=== PATIENT | female | born 1945 | race Caucasian/White ===

== ENCOUNTER 2017-07-22 15:01 | Outpatient (CLI) ==
[2014-12-02 14:32] VITALS: BMI 24.0
--- NOTE | 2017-07-22 16:46 | DI ---
EXAM: Frontal chest, right ribs four views HISTORY: Fall, pain. FINDINGS: No displaced rib fracture is identified. Bones are intact. Heart size is within normal li mits. No acute infiltrates are seen. No vascular congestion. There is no consolidation, visible ple ural fluid or pneumothorax. IMPRESSION: No fracture identified. Lungs are clear.
== END 2017-07-22 15:02 | disposition home or self-care (01) ==
LOC: RAD 15:01
PROVIDERS: ATTEND Family Medicine
DX: S29.9XXA Unspecified injury of thorax, initial encounter (principal); W19.XXXA Unspecified fall, initial encounter

== ENCOUNTER 2017-10-14 10:37 | Outpatient (CLI) ==
[2014-12-02 14:32] VITALS: BMI 24.0
--- NOTE | 2017-10-14 11:05 | DI ---
EXAM: Four views of the thoracic spine. History: Left-sided thoracic back pain. Findings: Cholecystectomy clips. Postsurgical changes of the cervical spine. No acute fracture or subluxation of the thoracic spine. Mild to moderate multilevel degenerative disc space narrowing wit h endplate sclerosis and a few small osteophytes. Impression: 1. No acute osseous abnormality of the thoracic spine. 2. Mild to moderate degenerative disc disease.
== END 2017-10-14 10:38 | disposition home or self-care (01) ==
LOC: RAD 10:37
PROVIDERS: ATTEND Family Medicine
DX: M54.6 Pain in thoracic spine (principal)

== ENCOUNTER 2024-04-05 02:05 | Inpatient (IN) ==
--- NOTE | 2024-04-05 02:28 | ED.PDOC ---
General ED Provider: Dr. MICHI HERNANDEZ MD Chief Complaint: Fall Stated Complaint: History obtained from the patient and her family member, patient with a history of hypertension, coronary disease, myocardial infarction, lymphoma states while ambulating using walker assistance she apparently slipped and fell injuring her right hip, at 4 PM yesterday. Patient also complains of hitting her head denies loss of conscious, dizziness, headache. Patient also complains having abrasion over her right elbow. Patient states she fell a week ago sustaining patient to her wrist which remains swollen. Time Seen by Provider: 04/05/24 02:27 Mode of Arrival: Wheelchair Information Source: Patient and Family Exam Limitations: Clinical condition Primary Care Provider: ROSA SANTIAGO Nursing and Triage Documentation Reviewed and Agree: Yes What is Opioid Naive?: *Opioid Naive implies the patient is not already taking opioids or not chronically receiving opioids on a daily basis. *PRN dosing is not "usually" associated with tolerance. *Patients are at higher risk of over-sedation and aspiration. What is Opioid Tolerant?: *Opioid Tolerance implies less than the expected response to an opioid. *Acquired tolerance is defined by the patient taking 60mg of oral morphine daily (or equianalgesic dose of another opioid) for 1 week or more. *Often associated with chronic pain. *May take more than usual dose to achieve desired pain control. Review of Systems Review Of Systems Constitutional: Reports No symptoms Eyes: Reports No symptoms Ears, Nose, Mouth, Throat: Reports No symptoms Respiratory: Reports No symptoms GI: Reports No symptoms : Reports No symptoms Musculoskeletal: Reports Joint pain and Other (Right wrist pain and swelling,) Skin: Reports Bruising (Abrasions over the right elbow, right wrist, bruising and swelling over the right hip) Neurological: Reports No symptoms Endocrine: Reports No symptoms Hematologic/Lymphatic: Reports No symptoms All Other Systems: Reviewed and Negative PFSH Female Reproductive History Menstrual Hx Hysterectomy: Yes Hx Tubal Ligation: No Physical Exam Physical Exam Appearance: Reports Well-appearing and Other (Scalp examination there is no swelling, ecchymosis or crepitus noted.) Ill-appearing: None Pain Distress: None Eyes: Reports ALEXANDRO and EOMI ENT: Reports Ears normal, Nose normal and Oropharynx normal Neck: Supple (There is no posterior cervical vertebral or paraspinal tenderness.) Respiratory: Reports Airway patent, Breath sounds clear and Breath sounds equal Cardiovascular: Reports RRR, Pulses normal and No rub GI/: Reports Soft, Nontender, No masses and Bowel sounds normal Musculoskeletal: Reports Normal strength, ROM intact and Other (There is a 1.5 cm cyst skin tear over the right elbow without swelling crepitus there is full range of motion the elbow. The right wrist swelling dorsally and tenderness with slight erythema. Right radial pulse 2+. The right hip with swelling tenderness ecchymosis over the greater trochanter. Fu) Skin: Reports Warm and Dry Neurological: Reports Sensation intact, Motor intact, Reflexes intact, Cranial nerves intact, Alert and Oriented (GCS-15) Psychiatric: Reports Affect appropriate and Mood appropriate Critical Care Note Critical Care Note Total Critical Care Time (mins): 0 Course Course 04/05/24 02:50 04/05/24 02:50 Orders, Labs, Meds: Lab Review 04/05/24 02:50 WBC 48.98 H RBC 3.75 L Hgb 12.4 Hct 38.9 MCV 103.7 H MCH 33.1 H MCHC 31.9 RDW Coeff of Monty 14.1 Plt Count 248 Neutrophils % (Manual) 26.0 L Lymphocytes % (Manual) 66.0 H Monocytes % (Manual) 2.0 Reactive Lymphocytes 6.0 H Anisocytosis Occasional PT 10.7 INR 1.03 Sodium 137.4 Potassium 4.04 Chloride 102.8 Carbon Dioxide 25.0 Anion Gap 13.64 BUN 24.0 H Creatinine 0.87 Estimated GFR (MDRD) 63.00 BUN/Creatinine Ratio 27.58 Glucose 337.6 H Calcium 8.48 Total Bilirubin 0.31 AST 54.7 H ALT 24.1 Alkaline Phosphatase 58.2 Total Protein 6.46 Albumin 3.87 Globulin 2.59 Albumin/Globulin Ratio 1.49 Orders Category Date Time Status EKG-(ED ONLY) Stat CARDIO 04/05/24 02:56 Completed CBC W/ AUTO DIFF Stat LAB 04/05/24 02:50 Completed CMP [COMPREHENSIVE METABOLIC PANEL] Stat LAB 04/05/24 02:50 Completed MANUAL DIFFERENTIAL Stat LAB 04/05/24 02:50 Completed PT WITH INR Stat LAB 04/05/24 02:50 Completed Diphth,Pertuss(Acell),Tet Vac [Boostrix] Meds 04/05/24 02:40 Discontinued 0.5 ml IM .ONCE ONE CT CERVICAL SPINE W/O CONTRAST Stat RADS 04/05/24 02:[address] HEAD W/O CONTRAST Stat RADS 04/05/24 02:[address] PELVIS W/O CONTRAST Stat RADS 04/05/24 02:40 Completed WRIST, RIGHT 3 VIEWS Stat RADS 04/05/24 02:42 Completed Medications Discontinued Medications Generic Name Dose Route Start Last Admin Trade Name Radha PRN Reason Stop Dose Admin Diphtheria/Pertussis/Tetanus Vacc 0.5 ml 04/05/24 02:40 04/05/24 04:00 Diphth,Pertuss(Acell),Tet Vac 0.5 Ml Disp.Syrin IM 04/05/24 02:41 0.5 ml .ONCE ONE Administration Vital Signs: Temp Pulse Resp BP Pulse Ox 04/05/24 02:08 98.2 F 94 20 126/69 96 Discharge Plan Discharge Patient Disposition: PLACED OBSERVATION Discharge Problem: Frequent falls Closed fracture of right inferior pubic ramus Qualifiers: Encounter type: initial encounter Qualified Code(s): S32.591A - Other specified fracture of right pubis, initial encounter for closed fracture Prescriptions: No Action potassium chloride [Klor-Con 10] 10 mEq tablet extended release 10 meq PO DAILY montelukast [Singulair] 10 mg tablet 10 mg PO DAILY fluticasone propionate [Flonase Allergy Relief] 50 mcg/actuation spray,suspension 2 spray intranasal BID Rx Instructions: administer into each nostril levothyroxine [Synthroid] 100 mcg tablet 100 mcg PO DAILY losartan [Cozaar] 25 mg tablet 25 mg PO DAILY Prempro 0.3-1.5 mg tablet 1 tab PO DAILY Trulicity 1.5 mg/0.5 mL pen injector 1.5 mg subcut WEEKLY omeprazole magnesium [Prilosec OTC] 20 mg tablet,delayed release (DR/EC) 20 mg PO BID spironolactone [Aldactone] 25 mg tablet 25 mg PO DAILY Serevent Diskus 50 mcg/dose blister with device 1 inh inhalation BID clopidogrel [Plavix] 75 mg tablet 75 mg PO DAILY fluticasone propionate [Flovent Diskus] 50 mcg/actuation blister with device 2 inh inhalation BID Jardiance 10 mg tablet 10 mg PO DAILY lovastatin 40 mg tablet 40 mg PO DAILY aspirin [Aspirin Childrens] 81 mg tablet,chewable 81 mg PO DAILY insulin glargine [Basaglar KwikPen U-100 Insulin] 100 unit/mL (3 mL) insulin pen 20 unit subcut DAILY furosemide [Lasix] 40 mg tablet 40 mg PO DAILY gabapentin 400 mg capsule 400 mg PO TID Entresto 24-26 mg tablet 1 tab PO BID insulin lispro [Humalog KwikPen Insulin] 100 unit/mL insulin pen 1 sliding scale dose subcut DIRECTED carvedilol [Coreg] 25 mg tablet 25 mg PO BID Rx Instructions: must administer with a meal/food metformin 500 mg tablet 500 mg PO DAILY ferrous sulfate [Feosol] 325 mg (65 mg iron) tablet 325 mg PO BID docusate sodium [Col-Rite] 100 mg capsule 100 mg PO BID oxycodone-acetaminophen [Endocet] 5-325 mg tablet 1 tab PO Q8H cetirizine [24Hour Allergy] 10 mg tablet 10 mg PO DAILY terazosin 5 mg tablet 5 mg PO BEDTIME calcium carbonate-vitamin D3 [Calcium 600 + D(3)] 600 mg-5 mcg (200 unit) tablet 1 tab PO BID Did you review [place] [employer] for ALL controlled substances?: Not Applicable ED Provider: MICHI HERNANDEZ Physician Progress Note: History obtained from the patient as well as the patient's family who states at 4 PM yesterday while ambulating with walker assistance she slipped and fell injuring her right elbow right hip and struck her head. Patient denies loss of conscious, headache, neck pain back pain. But complains of left hip pain. Patient with history of coronary disease, lymphoma, hypertension, type 2 diabetes. Patient received a Boostrix 0.5 mL IM 0306-EKG interpretation by myself consistent with normal sinus rhythm with first-degree block rate of [address] segment changes noted. There is no ectopy noted. Laboratory data reviewed CBC and CMP are of normal limit except for a white blood cell count of 48,000 previous white blood cell count August 2023 with a WBC of 50,000. Glucose of 337 X-ray of the right wrist interpretation radiologist shows no evidence of fracture dislocation The head CT scan without IV contrast interpretation by the radiologist shows no acute intracranial abnormality The cervical spine CT without IV contrast interpretation by radiologist shows stability of fracture. The pelvic CT without evidence of IV contrast interpretation radiologist is consistent with grossly intact hardware within the proximal left femur there is a mildly displaced fracture of the right inferior pubic ramus, no other fractures are seen, no dislocation. Differential diagnosis: 1)right inferior pubic ramus fracture 2) frequent falls Discussed with hospitalist Tacos Garcia at 0425 for observation
[2024-04-05 02:57] LABS: HEMATOCRIT 38.9 % (37.0-47.0); HEMOGLOBIN 12.4 g/dl (12.0-16.0); MEAN CORPUSCULAR HEMOGLOBIN 33.1 pg (27.0-31.0); MEAN CORPUSCULAR HGB CONC 31.9 (31.8-35.4); MEAN CORPUSCULAR VOLUME 103.7 fl (81.0-99.0); PLATELET COUNT 248 10^3/uL (140-440); RDW COEFFICIENT OF VARIATION 14.1 % (11.6-14.8); RED BLOOD COUNT 3.75 10^6/ul (4.20-5.40)
[2024-04-05 03:02] LABS: WHITE BLOOD COUNT 48.98 K/ul (4.6-10.2)
[2024-04-05 03:07] LABS: PROTHROMBIN TIME 10.7 SEC (9.3-11.0)
[2024-04-05 03:12] LABS: ALANINE AMINOTRANSFERASE 24.1 U/L (0-35); ALBUMIN 3.87 g/dL (3.5-5.0); ALKALINE PHOSPHATASE 58.2 U/L (53-141); ASPARTATE AMINO TRANSFERASE 54.7 U/L (14-36); BILIRUBIN,TOTAL 0.31 mg/dL (0.2-1.3); CALCIUM 8.48 mg/dL (8.4-10.2); CHLORIDE 102.8 mmol/L (98-107); CREATININE 0.87 mg/dL (0.60-1.30); GLUCOSE 337.6 mg/dL (74-106); POTASSIUM 4.04 mmol/L (3.5-5.1); SODIUM 137.4 mmol/L (134.5-145); TOTAL PROTEIN 6.46 g/dL (6.3-8.2)
[2024-04-05 03:24] LABS: ANISOCYTOSIS OCCASIONAL (NOT PRESENT)
--- NOTE | 2024-04-05 03:37 | CT ---
EXAM: CT HEAD WITHOUT CONTRAST. HISTORY: Fall. PROCEDURE: Contiguous axial CT images of the head without contrast with coronal and sagittal reforma ts. COMPARISON: CT head of 08/16/2023. FINDINGS: There is diffuse cerebral atrophy. The ventricles are stable in size. The basal cisterns are normal in appearance. No evidence of mass or midline shift. No intracranial hemorrhage or evid ence of large vessel infarct. No extra-axial fluid collection. There are chronic small vessel ische corinne changes in the white matter. The paranasal sinuses and mastoid air cells are normal in appearanc e. No skull fracture. Impression: No intracranial hemorrhage or skull fracture. Chronic small vessel ischemic changes. Diffuse cerebral atrophy. All CT scans are performed using dose optimization techniques as appropriate to the performed exam an d include at least one of the following: Automated exposure control, adjustment of the mA and/or kV according t o size, and the use of iterative reconstruction technique.
--- NOTE | 2024-04-05 03:41 | CT ---
EXAM: CT OF THE PELVIS WITHOUT CONTRAST History: Pelvic trauma and right hip pain. Technique: Multiplanar CT images through the pelvis were obtained without the administration of IV c ontrast FINDINGS: Atherosclerotic vascular calcifications. No bladder wall thickening. No perirectal infla mmation. Uterus is not enlarged. No pelvic lymphadenopathy and no pelvic fluid. Osteopenia. Grossly intact hardware within the proximal left femur. Postsurgical changes of the lum bar spine. Mildly displaced fracture of the right inferior pubic ramus. No other fractures are seen . No dislocation. Mild narrowing of the right hip joint. Impression: Fracture of the right inferior pubic ramus All CT scans are performed using dose optimization techniques as appropriate to the performed exam an d include at least one of the following: Automated exposure control, adjustment of the mA and/or kV according t o size, and the use of iterative reconstruction technique.
--- NOTE | 2024-04-05 03:45 | CT ---
EXAM: CT OF THE CERVICAL SPINE WITHOUT CONTRAST. HISTORY: Fall. PROCEDURE: Contiguous axial CT images of the cervical spine with coronal and sagittal reformats. FINDINGS: There is a C4-C7 ACDF which appears intact and in adequate position. There is normal alig nment of the cervical vertebral bodies and facets. The vertebral body heights are maintained. No ev idence of fracture. There is multilevel disc space narrowing. There is a large disc osteophyte comp paulina at C3-C4. There are small posterior osteophytes at multiple additional levels of the cervical sp ine. There is calcification of the ligamentum flavum at C2-3 and C3-4. There is multilevel facet ar thropathy. The C1-2 relationship is maintained. No prevertebral soft tissue abnormality. Impression: No evidence of fracture. Large disc osteophyte complex at C3-C4. C4-C7 ACDF. Degenerative changes as described. All CT scans are performed using dose optimization techniques as appropriate to the performed exam an d include at least one of the following: Automated exposure control, adjustment of the mA and/or kV according t o size, and the use of iterative reconstruction technique.
--- NOTE | 2024-04-05 03:47 | DI ---
EXAM: THREE VIEWS OF THE RIGHT WRIST. History: Right wrist trauma. FINDINGS: No acute fracture or dislocation. Severe atherosclerotic vascular calcifications. Mild t o moderate polyarticular joint space narrowing. Impression: 1. No acute osseous abnormalities. 2. Severe atherosclerotic vascular disease
[2024-04-05] MEDS: BOOSTRIX IM ONE (04:00)
[2024-04-05 04:48] LABS: SARS COV-2 RNA RAPID NAAT NEGATIVE (NEGATIVE)
--- NOTE | 2024-04-05 05:12 | DI ---
EXAM: SINGLE VIEW OF THE CHEST. History: Dyspnea. FINDINGS: Heart size is upper limits of normal. No consolidation. No pleural fluid and no pneumoth orax. No acute osseous abnormalities. Postsurgical changes of the cervical spine. Some type of hea rt device is identified Impression: No acute cardiopulmonary process
[2024-04-05 06:58] VITALS: BMI 30.1
[2024-04-05] MEDS ORDERED: DIPHENHYDRAMINE HCL 25 MG PO PRN (08:00)
[2024-04-05] MEDS ORDERED: HUMALOG (10 ML VIAL) SUBCUT SCH (08:00)
[2024-04-05] MEDS ORDERED: BENADRYL PO PRN (08:27)
[2024-04-05] MEDS ORDERED: NON-FORMULARY MEDICATION (Ferrous Sulfate [Feosol] 325 mg (65 mg iron) tablet) PO SCH (09:00)
[2024-04-05] MEDS ORDERED: CALCIUM CARBONATE VITAMIN D3 PO SCH (09:00)
[2024-04-05] MEDS ORDERED: FLUTICASONE PROPIONATE IH SCH (09:00)
[2024-04-05] MEDS ORDERED: NON-FORMULARY MEDICATION (Gabapentin 400 mg capsule) PO SCH (09:00)
[2024-04-05] MEDS ORDERED: [UNRECOGNIZED DRUG - OTHER] IH SCH (09:00)
[2024-04-05] MEDS ORDERED: NON-FORMULARY MEDICATION (Cetirizine [24hour Allergy] 10 mg tablet) PO SCH (09:00)
[2024-04-05] MEDS ORDERED: [UNRECOGNIZED DRUG - OTHER] PO SCH (09:00)
[2024-04-05] MEDS ORDERED: LASIX TAB PO SCH (09:00)
[2024-04-05] MEDS: CALCIUM 500 + VIT D 5 MCG (200 IU) TABLET PO SCH (09:19)
[2024-04-05] MEDS: ASPIRIN CHEWABLE PO SCH (09:19)
[2024-04-05] MEDS: GLUCOPHAGE PO SCH (09:19)
[2024-04-05] MEDS: PLAVIX PO SCH (09:19)
[2024-04-05] MEDS: PRILOSEC PO SCH (09:19)
[2024-04-05] MEDS: DULCOLAX PO PRN (09:20)
[2024-04-05] MEDS: SYMBICORT 160-4.5 MCG INHALER IH SCH (09:20)
[2024-04-05] MEDS: FLONASE NAS SCH (09:20)
[2024-04-05] MEDS: ENTRESTO 24 MG-26 MG TABLET PO SCH (09:20)
[2024-04-05] MEDS: CLARITIN PO SCH (09:20)
[2024-04-05] MEDS: COZAAR PO SCH (09:20)
[2024-04-05] MEDS: COREG PO SCH (09:20)
[2024-04-05] MEDS: COLACE PO SCH (09:21)
[2024-04-05] MEDS: NEURONTIN PO SCH ×2 (09:21)
[2024-04-05] MEDS: LASIX TAB PO SCH (09:21)
[2024-04-05] MEDS: JARDIANCE PO SCH (09:21)
[2024-04-05] MEDS: FERROUS SULFATE PO SCH (09:21)
[2024-04-05] MEDS: SYNTHROID PO SCH (09:21)
[2024-04-05] MEDS: SINGULAIR PO SCH (09:21)
[2024-04-05] MEDS: ALDACTONE PO SCH (09:21)
[2024-04-05] MEDS: CONJ ESTROG MEDROXYPROGEST ACE PO SCH (09:23)
[2024-04-05] MEDS: NON-FORMULARY MEDICATION (Dulaglutide [Trulicity] 1.5 mg/0.5 mL pen injector) SUBCUT SCH (09:24)
--- NOTE | 2024-04-05 09:37 | PCM ---
Date of Service Date Seen by Provider: 04/05/24 Time Seen by Provider: 09:00 Admit Day/Time Admission Date: 04/05/24 Reason for Admission Chief Complaint: INTERIOR PELVIC RAMUS FX, [place] Hospital Provider Hospital Provider: ABDI HAWK, [facility] [place] Primary Care Physician: ROSA SANTIAGO History of Present Illness History of Present Illness: 78 yo female presented to the ER after falling in her kitchen at 5pm. Came in for stitches/bleeding control due to skin tears on the R arm. Also had complaints of pain to the R hip. Found to have R pubic ramus fracture. Patient reports she has fallen twice in the last 2 days and both times she lost her balance. Denies dizziness or syncope. States she has chronic problems with her balance. Lives at home with her . Has wheelchair and walker available. Admitted to med/surg observation. Case Discussed With Case Discussed With: Patient's case was discussed with the ER Physicians, Dr. Mcmahon. [facility] Medical History Presence of Watchman left atrial appendage closure device Z95.818 - Presence of other cardiac implants and grafts (ICD-10) Lymphoma C85.90 - Non-Hodgkin lymphoma, unspecified, unspecified site (ICD-10) GERD (gastroesophageal reflux disease) K21.9 - Gastro-esophageal reflux disease without esophagitis (ICD-10) Asthma J45.909 - Unspecified asthma, uncomplicated (ICD-10) COPD (chronic obstructive pulmonary disease) J44.9 - Chronic obstructive pulmonary disease, unspecified (ICD-10) A-fib I48.91 - Unspecified atrial fibrillation (ICD-10) Myocardial infarction I21.9 - Acute myocardial infarction, unspecified (ICD-10) Hyperlipemia E78.5 - Hyperlipidemia, unspecified (ICD-10) Anemia D64.9 - Anemia, unspecified (ICD-10) Hypothyroidism E03.9 - Hypothyroidism, unspecified (ICD-10) Diabetes E11.9 - Type 2 diabetes mellitus without complications (ICD-10) HTN (hypertension) I10 - Essential (primary) hypertension (ICD-10) Surgical History History of radiofrequency ablation (RFA) procedure for cardiac arrhythmia Z98.890 - Other specified postprocedural states (ICD-10) History of lumbosacral spine surgery Z98.890 - Other specified postprocedural states (ICD-10) H/O thyroidectomy E89.0 - Postprocedural hypothyroidism (ICD-10) H/O: hysterectomy Z90.710 - Acquired absence of both cervix and uterus (ICD-10) Family History BROTHER Cancer FATHER Cancer Heart disease Social History Smoking and tobacco status: Never smoker Alcohol intake: never Allergies Allergies Allergy/AdvReac Type Severity Reaction Status Date / Time bacitracin AdvReac Verified 04/05/24 02:13 [From Triple Antibiotic] neomycin AdvReac Verified 04/05/24 02:13 [From Triple Antibiotic] Penicillins AdvReac Verified 04/05/24 02:13 polymyxin B AdvReac Verified 04/05/24 02:13 [From Triple Antibiotic] Current Medications Home Medications aspirin 81 mg chewable tablet (Aspirin Childrens) 81 mg PO DAILY 04/05/24 [History Confirmed 04/05/24 Last Taken Unknown] bisacodyl 5 mg tablet,delayed release (Dulcolax (bisacodyl)) 10 mg PO DAILY PRN constipation 04/05/24 [History Confirmed 04/05/24 Last Taken Unknown] calcium 600 mg (as carbonate)-vitamin D3 5 mcg (200 unit) tablet (Calcium 600 + D(3)) 1 tab PO BID 04/05/24 [History Confirmed 04/05/24 Last Taken Unknown] carvedilol 25 mg tablet (Coreg) 25 mg PO BID 04/05/24 [History Confirmed 04/05/24 Last Taken Unknown] cetirizine 10 mg tablet (24Hour Allergy) 10 mg PO DAILY 04/05/24 [History Confirmed 04/05/24 Last Taken Unknown] clopidogrel 75 mg tablet (Plavix) 75 mg PO DAILY 04/05/24 [History Confirmed 04/05/24 Last Taken Unknown] conj estrogen-medroxyprogesterone 0.3 mg-1.5 mg tablet (Prempro) 1 tab PO DAILY 04/05/24 [History Confirmed 04/05/24 Last Taken Unknown] diphenhydramine HCl 25 mg tablet (Banophen) 25 mg PO BEDTIME PRN sleep 04/05/24 [History Confirmed 04/05/24 Last Taken Unknown] docusate sodium 100 mg capsule (Col-Rite) 100 mg PO BID 04/05/24 [History Confirmed 04/05/24 Last Taken Unknown] dulaglutide 1.5 mg/0.5 mL subcutaneous pen injector (Trulicity) 1.5 mg subcut WEEKLY 04/05/24 [History Confirmed 04/05/24 Last Taken Unknown] empagliflozin 10 mg tablet (Jardiance) 10 mg PO DAILY 04/05/24 [History Confirmed 04/05/24 Last Taken Unknown] ferrous sulfate 325 mg (65 mg iron) tablet (Feosol) 325 mg PO BID 04/05/24 [History Confirmed 04/05/24 Last Taken Unknown] fluticasone propionate 50 mcg/actuation blister powder for inhalation (Flovent Diskus) 2 inh inhalation BID 04/05/24 [History Confirmed 04/05/24 Last Taken Unknown] fluticasone propionate 50 mcg/actuation nasal spray,suspension (Flonase Allergy Relief) 2 spray intranasal DAILY 04/05/24 [History Confirmed 04/05/24 Last Taken Unknown] furosemide 40 mg tablet (Lasix) 20 mg PO DAILY 04/05/24 [History Confirmed 04/05/24 Last Taken Unknown] gabapentin 400 mg capsule 400 mg PO TID 04/05/24 [History Confirmed 04/05/24 Last Taken Unknown] insulin glargine 100 unit/mL (3 mL) subcutaneous pen (Basaglar KwikPen U-100 Insulin) 24 unit subcut BEDTIME 04/05/24 [History Confirmed 04/05/24 Last Taken Unknown] insulin lispro 100 unit/mL subcutaneous pen (Humalog KwikPen (U-100) Insulin) 5 unit subcut .TIDWM 04/05/24 [History Confirmed 04/05/24 Last Taken Unknown] levothyroxine 100 mcg tablet (Synthroid) 100 mcg PO DAILY 04/05/24 [History Con firmed 04/05/24 Last Taken Unknown] losartan 25 mg tablet (Cozaar) 25 mg PO DAILY 04/05/24 [History Confirmed 04/05/24 Last Taken Unknown] lovastatin 40 mg tablet 40 mg PO DAILY 04/05/24 [History Confirmed 04/05/24 Last Taken Unknown] melatonin 10 mg capsule 10 mg PO BEDTIME 04/05/24 [History Confirmed 04/05/24 Last Taken Unknown] metformin 500 mg tablet 500 mg PO DAILY 04/05/24 [History Confirmed 04/05/24 Last Taken Unknown] montelukast 10 mg tablet (Singulair) 10 mg PO DAILY 04/05/24 [History Confirmed 04/05/24 Last Taken Unknown] omeprazole magnesium 20 mg tablet,delayed release (Prilosec OTC) 20 mg PO BID 04/05/24 [History Confirmed 04/05/24 Last Taken Unknown] oxycodone-acetaminophen 5 mg-325 mg tablet (Endocet) 1 tab PO Q8H 04/05/24 [History Confirmed 04/05/24 Last Taken Unknown] sacubitril 24 mg-valsartan 26 mg tablet (Entresto) 1 tab PO BID 04/05/24 [History Confirmed 04/05/24 Last Taken Unknown] salmeterol 50 mcg/dose blister powder for inhalation (Serevent Diskus) 1 inh inhalation BID 04/05/24 [History Confirmed 04/05/24 Last Taken Unknown] spironolactone 25 mg tablet (Aldactone) 25 mg PO DAILY 04/05/24 [History Confirmed 04/05/24 Last Taken Unknown] terazosin 5 mg tablet 5 mg PO BEDTIME 04/05/24 [History Confirmed 04/05/24 Last Taken Unknown] Home Acetaminophen (Acetaminophen 500 Mg Tablet) 500 mg PO Q4HR PRN PRN Reason: Pain Aspirin (Aspirin 81 Mg Tab.Chew) [facility] [place] Last Admin: 04/05/24 09:19 Dose: 81 mg Bisacodyl (Bisacodyl 5 Mg Tablet.Dr) 10 mg PO DAILY PRN PRN Reason: Constipation Last Admin: 04/05/24 09:20 Dose: 10 mg Budesonide/Formoterol Fumarate (Budesonide/Formoterol Fumarate 160/4.5 Mcg Inhaler) 2 puff IH BID [facility] Last Admin: 04/05/24 09:20 Dose: 2 puff Calcium/Vitamin D (Calcium Carbonate/Vitamin D3 500 Mg/5 Mcg(200iu) 1 Each Tablet) 1 each PO BID [facility] Last Admin: 04/05/24 09:19 Dose: 1 each Carvedilol (Carvedilol 12.5 Mg Tablet) 25 mg PO BIDWM2 [facility] Last Admin: 04/05/24 09:20 Dose: 25 mg Clopidogrel Bisulfate (Clopidogrel Bisulfate 75 Mg Tablet) 75 mg PO DAILY [facility] Last Admin: 04/05/24 09:19 Dose: 75 mg Diphenhydramine HCl (Diphenhydramine Hcl 25 Mg Capsule) 25 mg PO BEDTIME PRN PRN Reason: Insomnia Docusate Sodium (Docusate Sodium 100 Mg Capsule) 100 mg PO BID [facility] Last Admin: 04/05/24 09:21 Dose: 100 mg Empagliflozin (Empagliflozin 10 Mg Tablet) 10 mg PO DAILY [facility] Last Admin: 04/05/24 09:21 Dose: 10 mg Ferrous Sulfate (Ferrous Sulfate 324 Mg Tablet.Dr) 324 mg PO BID [facility] Last Admin: 04/05/24 09:21 Dose: 324 mg Fluticasone Propionate (Fluticasone Propionate 16 Gm Nasal [place]) 2 spray THERESA DAILY [facility] Last Admin: 04/05/24 09:20 Dose: 2 spray Furosemide (Furosemide 20 Mg Tablet) 20 mg PO QDAC2 [facility] Last Admin: 04/05/24 09:21 Dose: 20 mg Gabapentin (Gabapentin 300 Mg Capsule) 300 mg PO TID [facility] Last Admin: 04/05/24 09:21 Dose: 300 mg Gabapentin (Gabapentin 100 Mg Capsule) 100 mg PO TID [facility] Last Admin: 04/05/24 09:21 Dose: 100 mg Insulin Glargine (Insulin Glargine,Hum.Rec.Anlog 100 Units/Ml) 24 unit SUBCUT BEDTIME [facility] Insulin Human Lispro (Insulin Lispro 100 Unit/Ml (10 Ml Vial)) 5 unit SUBCUT TIDWM2 [facility] Levothyroxine Sodium (Levothyroxine Sodium 100 Mcg Tablet) 100 mcg PO QDAC2 [facility] Last Admin: 04/05/24 09:21 Dose: 100 mcg Loratadine (Loratadine 10 Mg Tablet) 10 mg PO DAILY [facility] Last Admin: 04/05/24 09:20 Dose: 10 mg Losartan Potassium (Losartan Potassium 25 Mg Tablet) 25 mg PO DAILY [facility] Last Admin: 04/05/24 09:20 Dose: 25 mg Lovastatin (Lovastatin 20 Mg Tablet) 40 mg PO QPM [facility] Metformin HCl (Metformin Hcl 500 Mg Tablet) 500 mg PO DAILYWM2 [facility] Last Admin: 04/05/24 09:19 Dose: 500 mg Montelukast Sodium (Montelukast Sodium 10 Mg Tablet) 10 mg PO DAILY [facility] Last Admin: 04/05/24 09:21 Dose: 10 mg Non-Formulary Medication (Conj Estrog-Medroxyprogest Michael [Prempro]) 1 tab PO DAILY [facility] Last Admin: 04/05/24 09:23 Dose: Not Given Non-Formulary Medication (Melatonin) 10 mg PO BEDTIME [facility] Non-Formulary Medication (Dulaglutide [Trulicity]) 1.5 mg SUBCUT WEEKLY [facility] Omeprazole (Omeprazole 20 Mg Capsule.Dr) 20 mg PO BIDAC2 [facility] Last Admin: 04/05/24 09:19 Dose: 20 mg Sacubitril/Valsartan (Sacubitril/Valsartan 1 Each Tablet) 1 each PO BID [facility] Last Admin: 04/05/24 09:20 Dose: 1 each Sodium Chloride (0.9% Sodium Chloride 10 Ml Disp.Syrin) 1 syr IVF PRN PRN PRN Reason: To flush IV Spironolactone (Spironolactone 25 Mg Tablet) 25 mg PO DAILY [facility] Last Admin: 04/05/24 09:21 Dose: 25 mg Terazosin HCl (Terazosin Hcl 5 Mg Capsule) 5 mg PO BEDTIME [facility] Discontinued Medications Diphtheria/Pertussis/Tetanus Vacc (Diphth,Pertuss(Acell),Tet Vac 0.5 Ml Disp.Syrin) 0.5 ml IM .ONCE ONE Stop: 04/05/24 02:41 Last Admin: 04/05/24 04:00 Dose: 0.5 ml Insulin Human Lispro (Insulin Lispro 100 Unit/Ml (10 Ml Vial)) 0 - 20 unit SUBCUT DIRECTED [facility] Non-Formulary Medication (Dulaglutide [Trulicity]) 1.5 mg SUBCUT WEEKLY [facility] Last Admin: 04/05/24 09:24 Dose: Not Given Non-Formulary Medication (Salmeterol [Serevent Diskus]) 1 inh IH BID [facility] Opioid Naive vs. Tolerant Does Patient Take Opioids?: Yes Is Patient Opioid Naive?: No What is Opioid Naive?: *Opioid Naive implies the patient is not already taking opioids or not chronically receiving opioids on a daily basis. *PRN dosing is not "usually" associated with tolerance. *Patients are at higher risk of over-sedation and aspiration. Is Patient Opioid Tolerant?: No What is Opioid Tolerant?: *Opioid Tolerance implies less than the expected response to an opioid. *Acquired tolerance is defined by the patient taking 60mg of oral morphine daily (or equianalgesic dose of another opioid) for 1 week or more. *Often associated with chronic pain. *May take more than usual dose to achieve desired pain control. Review of Systems Constitutional: Reports No symptoms Head: Reports Normocephalic Eyes: Reports No symptoms Ears: Reports No symptoms Nose: Reports No symptoms Mouth: Reports No symptoms Throat: Reports No symptoms Cardiovascular: Reports No symptoms Respiratory: Reports No symptoms Gastrointestinal: Reports No symptoms Genitourinary: Reports No Symptoms Musculoskeletal: Reports Other (R hip pain) Dermatologic: Reports Skin Changes (skin tears to R elbow and forearm. ) Endocrine: Reports No symptoms Hematology: Reports No symptoms Immunology: Reports No symptoms Neurological: Reports No symptoms Psychiatric: Reports No symptoms Physical examination Most Recent Vital Signs: Most Recent Vital Signs Temperature 98.3 F 04/05/24 05:34 Temperature Source Temporal Artery Scan 04/05/24 05:34 Temperature Source Oral 04/05/24 05:20 Pulse Rate 70 04/05/24 05:34 Respiratory Rate 20 04/05/24 05:34 Blood Pressure 117/50 L 04/05/24 05:20 Blood Pressure Left Arm 145/60 04/05/24 05:34 Blood Pressure Position Supine 04/05/24 05:34 O2 Sat by Pulse Oximetry 97 04/05/24 05:34 Oxygen Delivery Method Room Air 04/05/24 09:00 Height 5 ft 4 in 04/05/24 05:34 Weight 79.7 kg 04/05/24 05:34 Appearance: Positive No Apparent Distress and Alert and Oriented x3 Skin: Positive Warm, Ecchymosis (R hip and R arm) and Other (Skin tears to R elbow and R forearm with steri strips in place) HEENT: Positive Normocephalic and PERRLA Neck: Positive Supple and Midline Trachea Chest/Lungs: Positive Symmetrical With Equal Breath Sounds, Clear to Auscultation Bilaterally and Good Air Movement all 4 Lung Bruce Heart: Positive RRR and Pulses Normal GI/: Positive Soft, Nontender, Bowel Sounds Normal and No Distention Musculoskeletal: Positive Not Examined Extremities: Positive Intact Peripheral Pulses and Stable Joints Without Laxity Neurological: Positive Sensation Intact, Motor intact, Alert, Oriented and Other (generalized weakness) Labs This Visit Labs This Visit: Labs This Visit 04/05/24 04/05/24 02:50 04:32 WBC 48.98 H RBC 3.75 L Hgb 12.4 Hct 38.9 MCV 103.7 H MCH 33.1 H MCHC 31.9 RDW Coeff of Monty 14.1 Plt Count 248 Neutrophils % (Manual) 26.0 L Lymphocytes % (Manual) 66.0 H Monocytes % (Manual) 2.0 Reactive Lymphocytes 6.0 H Anisocytosis Occasional PT 10.7 INR 1.03 Sodium 137.4 Potassium 4.04 Chloride 102.8 Carbon Dioxide 25.0 Anion Gap 13.64 BUN 24.0 H Creatinine 0.87 Estimated GFR (MDRD) 63.00 BUN/Creatinine Ratio 27.58 Glucose 337.6 H Calcium 8.48 Total Bilirubin 0.31 AST 54.7 H ALT 24.1 Alkaline Phosphatase 58.2 Total Protein 6.46 Albumin 3.87 Globulin 2.59 Albumin/Globulin Ratio 1.49 SARS CoV-2 RNA Rapid ALISA Negative Imaging Imaging: EXAM: CT OF THE PELVIS WITHOUT CONTRAST FINDINGS: Atherosclerotic vascular calcifications. No bladder wall thickening. No perirectal inflammation. Uterus is not enlarged. No pelvic lymphadenopathy and no pelvic fluid. Osteopenia. Grossly intact hardware within the proximal left femur. Postsurgical changes of the lumbar spine. Mildly displaced fracture of the right inferior pubic ramus. No other fractures are seen. No dislocation. Mild narrowing of the right hip joint. Impression: Fracture of the right inferior pubic ramus EXAM: CT OF THE CERVICAL SPINE WITHOUT CONTRAST. FINDINGS: There is a C4-C7 ACDF which appears intact and in adequate position. There is normal alignment of the cervical vertebral bodies and facets. The vertebral body heights are maintained. No evidence of fracture. There is multilevel disc space narrowing. There is a large disc osteophyte complex at C3-C4. There are small posterior osteophytes at multiple additional levels of the cervical spine. There is calcification of the ligamentum flavum at C2-3 and C3-4. There is multilevel facet arthropathy. The C1-2 relationship is maintained. No prevertebral soft tissue abnormality. Impression: No evidence of fracture. Large disc osteophyte complex at C3-C4. C4-C7 ACDF. Degenerative changes as described. EXAM: CT HEAD WITHOUT CONTRAST. FINDINGS: There is diffuse cerebral atrophy. The ventricles are stable in size. The basal cisterns are normal in appearance. No evidence of mass or midline shift. No intracranial hemorrhage or evidence of large vessel infarct. No extra-axial fluid collection. There are chronic small vessel ischemic changes in the white matter. The paranasal sinuses and mastoid air cells are normal in appearance. No skull fracture. Impression: No intracranial hemorrhage or skull fracture. Chronic small vessel ischemic changes. Diffuse cerebral atrophy. Review Statement Review Statement: I have independently reviewed and interpreted the labs/EKGs/imaging that were ordered by the ER provider. I have reviewed all outside records that are available currently in our EMR including imaging/notes/labs from previous visits. Plan Plan: 1. Right inferior pubic ramus fracture - PT/OT consult, will need rehab - patient undecided at this time if wants home health vs IPR vs SNF, will increase pain medications to Q6H prn, flexeril 5 mg tid prn 2. Chronic Systolic HF - chronic, not in exacerbation, continue home medications 3. Lymphoma - chronic, follows with [facility] Hem/Onc 4. A fib - chronic, stable, continue home medications 5. DM2 - chronic, accuchecks qid with ssi, ada diet, continue home medications DVT Prophylaxis: Plavix Time Spent: Greater than 80 minutes spent with patient, 50% of the time spent with this patient was devoted to counseling and coordination of care. [facility] minutes spent discussing advance care planning. Disposition: Admit to: Med/surg Observation Full Code Discussed Plan of Care with Dr. Bekah Gifford. Medications Medication Orders: Medications Ordered Category Date Time Status 0.9 % Sodium Chloride [Saline Flush] Meds 04/05/24 04:27 Active 1 syr IVF PRN PRN Acetaminophen [Tylenol] Meds 04/05/24 05:03 Active 500 mg PO Q4HR PRN Aspirin [Aspirin Chewable] Meds 04/05/24 09:00 Active 81 mg PO DAILYWM2 Bisacodyl [Dulcolax] Meds 04/05/24 08:00 Active 10 mg PO DAILY PRN Budesonide/Formoterol Fumarate [Symbicort 160-4.5 Mcg Meds 04/05/24 09:00 Active Inhaler] 2 puff IH BID Calcium Carbonate/Vitamin D3 [Calcium 500 + Vit D 5 Mcg Meds 04/05/24 09:00 Active (200 Iu) Tablet] 1 each PO BID Carvedilol [Coreg] Meds 04/05/24 09:00 Active 25 mg PO BIDWM2 Clopidogrel Bisulfate [Plavix] Meds 04/05/24 09:00 Active 75 mg PO DAILY Diphenhydramine HCl [Benadryl] Meds 04/05/24 08:27 Active 25 mg PO BEDTIME PRN Docusate Sodium [Colace] Meds 04/05/24 09:00 Active 100 mg PO BID Empaglifozin [Jardiance] Meds 04/05/24 09:00 Active 10 mg PO DAILY Ferrous Sulfate Meds 04/05/24 09:00 Active 324 mg PO BID Fluticasone Propionate [Flonase] Meds 04/05/24 09:00 Active 2 spray THERESA DAILY Furosemide [Lasix Tab] Meds 04/05/24 09:00 Active 20 mg PO QDAC2 Gabapentin [Neurontin] Meds 04/05/24 09:00 Active 100 mg PO TID Gabapentin [Neurontin] Meds 04/05/24 09:00 Active 300 mg PO TID Insulin Glargine,Hum.rec.anlog [Lantus] Meds 04/05/24 21:00 Active 24 unit SUBCUT BEDTIME Insulin Lispro [Humalog (10 ml Vial)] Meds 04/05/24 12:00 Active 5 unit SUBCUT TIDWM2 Levothyroxine Sodium [Synthroid] Meds 04/05/24 09:00 Active 100 mcg PO QDAC2 Loratadine [Claritin] Meds 04/05/24 09:00 Active 10 mg PO DAILY Losartan Potassium [Cozaar] Meds 04/05/24 09:00 Active 25 mg PO DAILY Lovastatin [Mevacor] Meds 04/05/24 17:00 Active 40 mg PO QPM Metformin HCl [Glucophage] Meds 04/05/24 09:00 Active 500 mg PO DAILYWM2 Montelukast Sodium [Singulair] Meds 04/05/24 09:00 Active 10 mg PO DAILY Omeprazole [Prilosec] Meds 04/05/24 09:00 Active 20 mg PO BIDAC2 Sacubitril/Valsartan [Entresto 24 mg-26 mg Tablet] Meds 04/05/24 09:00 Active 1 each PO BID Spironolactone [Aldactone] Meds 04/05/24 09:00 Active 25 mg PO DAILY Terazosin HCl [Hytrin] Meds 04/05/24 21:00 Active 5 mg PO BEDTIME conj estrog-medroxyprogest michael [Prempro] Meds 04/05/24 09:00 Active 1 tab PO DAILY dulaglutide [Trulicity] Meds 04/10/24 09:00 Ordered 1.5 mg SUBCUT WEEKLY melatonin Meds 04/05/24 21:00 Active 10 mg PO BEDTIME
[2024-04-05] MEDS: HUMALOG (10 ML VIAL) SUBCUT SCH (12:20)
[2024-04-05] MEDS: TYLENOL PO PRN (15:02)
[2024-04-05] MEDS: MEVACOR PO SCH (17:23)
[2024-04-05] MEDS: HYTRIN PO SCH (20:37)
[2024-04-05] MEDS: LANTUS SUBCUT SCH (20:38)
[2024-04-05] MEDS: NON-FORMULARY MEDICATION (Melatonin 10 mg capsule) PO SCH (20:40)
[2024-04-05] MEDS ORDERED: TERAZOSIN 5 MG PO SCH (21:00)
[2024-04-06 05:18] LABS: HEMATOCRIT 35.9 % (37.0-47.0); HEMOGLOBIN 11.2 g/dl (12.0-16.0); MEAN CORPUSCULAR HEMOGLOBIN 32.9 pg (27.0-31.0); MEAN CORPUSCULAR HGB CONC 31.2 (31.8-35.4); MEAN CORPUSCULAR VOLUME 105.6 fl (81.0-99.0); PLATELET COUNT 211 10^3/uL (140-440); RDW COEFFICIENT OF VARIATION 14.4 % (11.6-14.8)
[2024-04-06 05:31] LABS: ALANINE AMINOTRANSFERASE 21.7 U/L (0-35); ALBUMIN 3.47 g/dL (3.5-5.0); ALKALINE PHOSPHATASE 59.6 U/L (53-141); ASPARTATE AMINO TRANSFERASE 28.1 U/L (14-36); BILIRUBIN,TOTAL 0.33 mg/dL (0.2-1.3); BLOOD UREA NITROGEN 26.1 mg/dL (7-17); CALCIUM 8.54 mg/dL (8.4-10.2); CARBON DIOXIDE 27.5 mmol/L (22-30.0); CREATININE 0.75 mg/dL (0.60-1.30); GLUCOSE 146.9 mg/dL (74-106); POTASSIUM 4.19 mmol/L (3.5-5.1); SODIUM 137.2 mmol/L (134.5-145); TOTAL PROTEIN 6.08 g/dL (6.3-8.2)
[2024-04-06 05:36] LABS: ANISOCYTOSIS NOT PRESENT (NOT PRESENT)
[2024-04-06] MEDS ORDERED: NORCO 5-325 PO PRN (08:27)
[2024-04-06] MEDS ORDERED: ROBAXIN PO PRN (08:27)
--- NOTE | 2024-04-06 09:49 | RS.PTINEVL ---
Subjective Patient information Date of Evaluation: 04/06/24 Date of Arrival on Unit: 04/05/24 Admitted From:: Home Diagnosis: s/p falls at home, R inf pubic ramus fx, gait difficulty Usual Living Arrangement: With Spouse Living Arrangement Comments: lives at home with spouse and daughter Home Environment: House and Ramp Medical History: Hypertension, COPD, Diabetes, Arthritis and Cancer (lymphoma) Medical History Comments:: afib, [place], GERD, hypothyroidism, asthma LATEX ALLERGY?: No Surgical History: Lumbar Spine and Hysterectomy Surgical History Comments:: cardiac ablation, thyroidectomy, Medications: see chart Subjective Information/ Patient Comments:: pt states her legs "gave out" causing her to fall 2 times at home. pt states she plans to go to [facility] for rehab because she has been there before. Level of function Prior to this admission, the patient could do the following:: Partially Dependent Ambulation Abilities prior to this admission: pt reports that she amb with rwx at home with assist of . States she did not walk on her own. She reports and daughter assist with all ADL's. Current Level of Function: Partially Dependent Current Equipment Used at Home: rolling walker, wheel chair, lift chair Pain Assessement Location R pelvic area: Description: Sharp and Aching Pain Behavior: Facial Grimacing Pain Aggravating Factors: Standing and Sitting Pain Alleviating Factors: Medication and Position Change Interventions Objective Patient Orientation: Person, Place and Situation Current Interventions: Telemetry Observation: pt with dressings intact to RUE. Range of Motion ROM Right Upper Extremity AROM: WFL's Left Upper Extremity AROM: WFL's Right Lower Extremity AROM: Slight limitation (R hip due to pain) Left Lower Extremity AROM: WFL's Muscle Strength Muscle Strength Right Upper Extremity: Mild Weakness (grossly 4/5 ) Left Upper Extremity: Mild Weakness (grossly 4/5 ) Right Lower Extremity: Moderate Weakness (hip flex 3-/5, knee flex 4-/5, ext 3+/5, ankle DF/PF 4/ 5 ) Left Lower Extremity: Mild Weakness (hip flex 4/5, knee flex/ext 4/5, ankle DF/PF 4/5 ) Sensation Sensation Right Upper Extremity: Intact/Normal Left Upper Extremity: Intact/Normal Right Lower Extremity: Intact/Normal Left Lower Extremity: Intact/Normal Palpation Palpation Findings: Tenderness and Muscle Guarding Balance Sitting Balance and Reactions Static Sitting Balance: Fair Dynamic Sitting Balance: Poor Standing Balance and Reactions Static Standing Balance: Poor Dynamic Standing Balance: Poor Standing Equilibrium Reactions: Delayed Left and Delayed Right Standing Protective Reactions: Delayed Left and Delayed Right Functional Mobility Bed Mobility Comments:: pt seen sitting up on BSC Transfers Sit to Stand: Min Assist and 2 person assist Stand to Sit: Min Assist and 2 person assist Safety Awareness Safety Awareness: Fair [place] INDEX SCORE: n/a Ambulation Ambulation Weight Bearing Status: WBAT Assistive Device Used: Rolling Walker Orthotic/Prosthetic Device: No Distance: 5 steps Assistance needed with Ambulation: Min Assist and 2 person assist Gait Deviations: Forward posture and Short stride Ambulation Comments: pt with antalgic gait, decreased stance time on RLE Factors Affecting Ambulation: Decreased Balance, Pain, Weakness, Decreased Safety and Limited Endurance Treatment time Time with patient Length of Evaluation: 19 Total treatment time: 26 Patient Education Education Patient Education: Activity Modification and Education of Plan of Care Teaching Recipient: Patient Teaching Methods: Discussion Comments: discussion regarding POC and dc planning Assessment Assessment Problem List:: Decreased level of function, Requires training/education, Decreased safety/Risk of falls, Weakness and Pain limits previous level of function Rehab Potential: Fair Further Therapy Indicated?: Yes Candidate for Swing Bed for Therapy Services?: pt may be a candidate for swing bed. Evaluation Complexity: HISTORY: Medium, EXAM OF BODY SYSTEMS: Medium, CLINICAL PRESENTATION: Medium and CLINICAL DECISION MAKING: Medium Patient's Goal(s): be able to walk better and return home. Short Term Goals GOAL #1: pt demonstrate rolling and scooting with min x 1 Goal to be met by: 04/09/24 GOAL #2: Transfer sup to/from sit min x 1 Goal to be met by: 04/09/24 GOAL #3: Transfer sit to/from stand min x 1 Goal to be met by: 04/09/24 GOAL #4: pt amb with rwx 50ft with min x 1-2 Goal to be met by: 04/09/24 GOAL #5: Improve BLE strength 4/5 Goal to be met by: 04/09/24 [facility]sp Goals GOAL #1: pt transfer sup to/from sit to/from stand CGA Goal to be met by: 04/11/24 GOAL #2: pt amb 100ft with rwx CGA x 1 Goal to be met by: 04/11/24 GOAL #3: Improve dyn stand balance fair Goal to be met by: 04/11/24 Plan Plan of Care: Therapeutic EX and Therapeutic Activity Other:: gait training Frequency of Treatment: 1-2 X day, as tolerated Duration of Treatment: 5 days Anticipated Discharge Destination: undetermined Treatment Diagnosis (ICD 10 Codes): difficulty walking R 26.2 impaired balance R 26.81 weakness M62.81 R inf pubic ramus fx Has the Physician been added for Co-signature?: Yes
[2024-04-06] MEDS: PERCOCET 5-325 PO SCH (10:24)
--- NOTE | 2024-04-06 10:30 | PCM.PROG ---
Date/Time Seen Date Seen by Provider: 04/06/24 Time Seen by Provider: 08:30 Provider Provider: [facility]-C[facility] Chief Complaint Chief Complaint: INTERIOR PELVIC RAMUS FX, FREQUENT FALLS Subjective Subjective: Patient isn't having much pain at rest but admits to having a lot of pain with standing. Complains of pain in her right hip. States at home her baseline is getting around her house with the help of a walker and her for the last two years since a hip surgery. She otherwise denies complaints. Doesn't feel safe going home like this, feels she needs extended therapy. Objective Appearance: Positive No Apparent Distress and Alert and Oriented x3 Chest/Lungs: Positive Clear to Auscultation Bilaterally; Negative Rales, Rhonci or Wheezes Heart: Positive RRR GI/: Positive Soft, Nontender, Bowel Sounds Normal and No Distention Neurological: Positive Cranial Nerves Intact, Alert, Oriented and Other (+generalized weakness) Vital Signs Vital Signs: Vital Signs: Last 24 Hours 04/05/24 11:00 04/05/24 11:24 04/05/24 12:06 Temperature Temperature Source Pulse Rate Respiratory Rate Blood Pressure Blood Pressure Mean Blood Pressure Location Blood Pressure Position O2 Sat by Pulse Oximetry Oxygen Delivery Method Room Air Room Air Telemetry Type Remote Telemetry Telemetry Monitoring Continues Telemetry Heart Rate 77 EKG OK Interval 0.22 H EKG QRS Interval 0.08 Telemetry Strip Reading SR w/ 1st degree AVB 04/05/24 12:54 04/05/24 14:00 04/05/24 14:00 Temperature 98.4 F Temperature Source Temporal Artery Scan Pulse Rate 82 Respiratory Rate 16 Blood Pressure 118/66 Blood Pressure Mean 83 Blood Pressure Location Right Arm Blood Pressure Position O2 Sat by Pulse Oximetry 95 Oxygen Delivery Method Room Air Room Air Room Air Telemetry Type Telemetry Monitoring Telemetry Heart Rate EKG OK Interval EKG QRS Interval Telemetry Strip Reading 04/05/24 14:47 04/05/24 16:00 04/05/24 16:37 Temperature Temperature Source Pulse Rate Respiratory Rate Blood Pressure Blood Pressure Mean Blood Pressure Location Blood Pressure Position O2 Sat by Pulse Oximetry Oxygen Delivery Method Room Air Room Air Room Air Telemetry Type Telemetry Monitoring Telemetry Heart Rate EKG OK Interval EKG QRS Interval Telemetry Strip Reading 04/05/24 17:23 04/05/24 17:58 04/05/24 19:00 Temperature 98.4 F Temperature Source Temporal Artery Scan Pulse Rate 82 Respiratory Rate 16 Blood Pressure 93/47 L Blood Pressure Mean 62 Blood Pressure Location Left Arm Blood Pressure Position O2 Sat by Pulse Oximetry 95 Oxygen Delivery Method Room Air Room Air Telemetry Type Remote Telemetry Telemetry Monitoring Continues Telemetry Heart Rate 80 EKG OK Interval 0.20 EKG QRS Interval 0.10 Telemetry Strip Reading SR 04/05/24 19:00 04/05/24 20:00 04/05/24 20:00 Temperature Temperature Source Pulse Rate Respiratory Rate Blood Pressure Blood Pressure Mean Blood Pressure Location Blood Pressure Position O2 Sat by Pulse Oximetry Oxygen Delivery Method Room Air Room Air Room Air Telemetry Type Telemetry Monitoring Telemetry Heart Rate EKG OK Interval EKG QRS Interval Telemetry Strip Reading 04/05/24 20:24 04/05/24 21:00 04/05/24 22:00 Temperature 98.1 F Temperature Source Temporal Artery Scan Pulse Rate 70 Respiratory Rate 17 Blood Pressure 96/50 L Blood Pressure Mean 65 Blood Pressure Location Left Arm Blood Pressure Position Supine O2 Sat by Pulse Oximetry 96 Oxygen Delivery Method Room Air Room Air Room Air Telemetry Type Telemetry Monitoring Telemetry Heart Rate EKG OK Interval EKG QRS Interval Telemetry Strip Reading 04/05/24 23:00 04/06/24 00:00 04/06/24 01:00 Temperature Temperature Source Pulse Rate Respiratory Rate Blood Pressure Blood Pressure Mean Blood Pressure Location Blood Pressure Position O2 Sat by Pulse Oximetry Oxygen Delivery Method Room Air Room Air Room Air Telemetry Type Telemetry Monitoring Telemetry Heart Rate EKG OK Interval EKG QRS Interval Telemetry Strip Reading 04/06/24 01:00 04/06/24 02:00 04/06/24 02:00 Temperature 98.7 F Temperature Source Temporal Artery Scan Pulse Rate 81 Respiratory Rate 17 Blood Pressure 93/52 L Blood Pressure Mean 65 Blood Pressure Location Left Arm Blood Pressure Position Supine O2 Sat by Pulse Oximetry 97 Oxygen Delivery Method Room Air Room Air Telemetry Type Remote Telemetry Telemetry Monitoring Continues Telemetry Heart Rate 81 EKG OK Interval 0.23 H EKG QRS Interval 0.10 Telemetry Strip Reading SR w/ 1st degree AVB 04/06/24 03:00 04/06/24 04:00 04/06/24 05:00 Temperature Temperature Source Pulse Rate Respiratory Rate Blood Pressure Blood Pressure Mean Blood Pressure Location Blood Pressure Position O2 Sat by Pulse Oximetry Oxygen Delivery Method Room Air Room Air Room Air Telemetry Type Telemetry Monitoring Telemetry Heart Rate EKG OK Interval EKG QRS Interval Telemetry Strip Reading 04/06/24 05:45 04/06/24 06:00 04/06/24 07:00 Temperature 98.1 F Temperature Source Temporal Artery Scan Pulse Rate 88 Respiratory Rate 17 Blood Pressure 119/62 Blood Pressure Mean 81 Blood Pressure Location Left Arm Blood Pressure Position Supine O2 Sat by Pulse Oximetry 95 Oxygen Delivery Method Room Air Room Air Telemetry Type Remote Telemetry Telemetry Monitoring Continues Telemetry Heart Rate 95 EKG OK Interval 0.24 H EKG QRS Interval 0.10 Telemetry Strip Reading SR w/ 1st degree AVB 04/06/24 07:00 04/06/24 08:00 04/06/24 08:00 Temperature Temperature Source Pulse Rate Respiratory Rate Blood Pressure Blood Pressure Mean Blood Pressure Location Blood Pressure Position O2 Sat by Pulse Oximetry Oxygen Delivery Method Room Air Room Air Room Air Telemetry Type Telemetry Monitoring Telemetry Heart Rate EKG OK Interval EKG QRS Interval Telemetry Strip Reading 04/06/24 09:00 Temperature Temperature Source Pulse Rate Respiratory Rate Blood Pressure Blood Pressure Mean Blood Pressure Location Blood Pressure Position O2 Sat by Pulse Oximetry Oxygen Delivery Method Room Air Telemetry Type Telemetry Monitoring Telemetry Heart Rate EKG OK Interval EKG QRS Interval Telemetry Strip Reading Lab Results Lab Results: Lab Results: Last 24 Hours 04/06/24 05:08 WBC 39.60 H D RBC 3.40 L Hgb 11.2 L Hct 35.9 L MCV 105.6 H MCH 32.9 H MCHC 31.2 L RDW Coeff of Monty 14.4 Plt Count 211 Neutrophils % (Manual) 18.0 L Lymphocytes % (Manual) 77.0 H Monocytes % (Manual) 5.0 Anisocytosis Not present Sodium 137.2 Potassium 4.19 Chloride 105.0 Carbon Dioxide 27.5 Anion Gap 8.89 BUN 26.1 H Creatinine 0.75 Estimated GFR (MDRD) 75.00 BUN/Creatinine Ratio 34.80 Glucose 146.9 H Calcium 8.54 Total Bilirubin 0.33 AST 28.1 D ALT 21.7 Alkaline Phosphatase 59.6 Total Protein 6.08 L Albumin 3.47 L Globulin 2.61 Albumin/Globulin Ratio 1.32 Additional Comments Additional Comments: I have independently reviewed and interpreted the labs/EKGs/imaging ordered during this hospital stay. I have reviewed outside records that are available in our EMR that pertain to medical stay including imaging/notes/labs from previous visits. Active Medications Active Medications: Medications Generic Name Dose Route Start Last Admin Trade Name Freq PRN Reason Stop Dose Admin Acetaminophen 500 mg 04/05/24 05:03 04/05/24 15:02 Acetaminophen 500 Mg Tablet PO 500 mg Q4HR PRN Administration Pain Aspirin 81 mg 04/05/24 09:00 04/06/24 08:03 Aspirin 81 Mg Tab.Chew PO 81 mg DAILYWM2 MURPHY Administration Bisacodyl 10 mg 04/05/24 08:00 04/05/24 09:20 Bisacodyl 5 Mg Tablet. PO 10 mg DAILY PRN Administration Constipation Budesonide/Formoterol Fumarate 2 puff 04/05/24 09:00 04/06/24 08:09 Budesonide/Formoterol Fumarate 160/4.5 Mcg Inhaler IH 2 puff BID MURPHY Administration Calcium/Vitamin D 1 each 04/05/24 09:00 04/06/24 08:04 Calcium Carbonate/Vitamin D3 500 Mg/5 Mcg(200iu) 1 Each Tablet PO 1 each BID MURPHY Administration Carvedilol 25 mg 04/05/24 09:00 04/06/24 08:05 Carvedilol 12.5 Mg Tablet PO 25 mg BIDWM2 MURPHY Administration Clopidogrel Bisulfate 75 mg 04/05/24 09:00 04/06/24 08:09 Clopidogrel Bisulfate 75 Mg Tablet PO 75 mg DAILY MURPHY Administration Diphenhydramine HCl 25 mg 04/05/24 08:27 Diphenhydramine Hcl 25 Mg Capsule PO BEDTIME PRN Insomnia Docusate Sodium 100 mg 04/05/24 09:00 04/06/24 08:07 Docusate Sodium 100 Mg Capsule PO 100 mg BID MURPHY Administration Empagliflozin 10 mg 04/05/24 09:00 04/06/24 08:08 Empagliflozin 10 Mg Tablet PO 10 mg DAILY MURPHY Administration Ferrous Sulfate 324 mg 04/05/24 09:00 04/06/24 08:05 Ferrous Sulfate 324 Mg Tablet. PO 324 mg BID MURPHY Administration Fluticasone Propionate 2 spray 04/05/24 09:00 04/06/24 08:09 Fluticasone Propionate 16 Gm Nasal [place] THERESA 2 spray DAILY MURPHY Administration Furosemide 20 mg 04/05/24 09:00 04/06/24 05:36 Furosemide 20 Mg Tablet PO 20 mg QDAC2 MURPHY Administration Gabapentin 300 mg 04/05/24 09:00 04/06/24 08:08 Gabapentin 300 Mg Capsule PO 300 mg TID MURPHY Administration Gabapentin 100 mg 04/05/24 09:00 04/06/24 08:08 Gabapentin 100 Mg Capsule PO 100 mg TID MURPHY Administration Insulin Glargine 24 unit 04/05/24 21:00 04/05/24 20:38 Insulin Glargine,Hum.Rec.Anlog 100 Units/Ml SUBCUT 24 unit BEDTIME MURPHY Administration Insulin Human Lispro 5 unit 04/05/24 12:00 04/06/24 08:13 Insulin Lispro 100 Unit/Ml (10 Ml Vial) SUBCUT 5 unit TIDWM2 MURPHY Administration Levothyroxine Sodium 100 mcg 04/05/24 09:00 04/06/24 05:36 Levothyroxine Sodium 100 Mcg Tablet PO 100 mcg QDAC2 MURPHY Administration Loratadine 10 mg 04/05/24 09:00 04/06/24 08:09 Loratadine 10 Mg Tablet PO 10 mg DAILY MURPHY Administration Losartan Potassium 25 mg 04/05/24 09:00 04/06/24 08:04 Losartan Potassium 25 Mg Tablet PO 25 mg DAILY MURPHY Administration Lovastatin 40 mg 04/05/24 17:00 04/05/24 17:23 Lovastatin 20 Mg Tablet PO 40 mg QPM MURPHY Administration Metformin HCl 500 mg 04/05/24 09:00 04/06/24 08:07 Metformin Hcl 500 Mg Tablet PO 500 mg DAILYWM2 MURPHY Administration Methocarbamol 500 mg 04/06/24 08:27 Methocarbamol 500 Mg Tablet PO Q6HR PRN pain Montelukast Sodium 10 mg 04/05/24 09:00 04/06/24 08:07 Montelukast Sodium 10 Mg Tablet PO 10 mg DAILY MURPHY Administration Non-Formulary Medication 1 tab 04/05/24 09:00 04/06/24 09:46 Conj Estrog-Medroxyprogest Michael [Prempro] PO 1 tab DAILY MURPHY Administration Non-Formulary Medication 10 mg 04/05/24 21:00 04/05/24 20:40 Melatonin PO Not Given BEDTIME MURPHY Non-Formulary Medication 1.5 mg 04/10/24 09:00 Dulaglutide [Trulicity] SUBCUT WEEKLY MURPHY Omeprazole 20 mg 04/05/24 09:00 04/06/24 05:35 Omeprazole 20 Mg Capsule. PO 20 mg BIDAC2 MURPHY Administration Oxycodone/Acetaminophen 1 tab 04/06/24 08:30 04/06/24 10:24 Oxycodone/Acetaminophen 5/325 Mg Tablet PO 1 tab Q8H MURPHY Administration Sacubitril/Valsartan 1 each 04/05/24 09:00 04/06/24 08:06 Sacubitril/Valsartan 1 Each Tablet PO 1 each BID MURPHY Administration Sodium Chloride 1 syr 04/05/24 04:27 04/05/24 20:38 0.9% Sodium Chloride 10 Ml Disp.Syrin IVF 1 syr PRN PRN Administration To flush IV Sodium Chloride 1 syr 04/06/24 05:00 04/06/24 05:36 0.9% Sodium Chloride 10 Ml Disp.Syrin IVF 1 syr Q8HR MURPHY Administration Spironolactone 25 mg 04/05/24 09:00 04/06/24 08:04 Spironolactone 25 Mg Tablet PO 25 mg DAILY MURPHY Administration Terazosin HCl 5 mg 04/05/24 21:00 04/05/24 20:37 Terazosin Hcl 5 Mg Capsule PO 5 mg BEDTIME MURPHY Administration Plan Plan: 1. Right inferior pubic ramus fracture - PT/OT consult, will need rehab - patient undecided at this time if wants swingbed vs SNF, oxycodone ordered and robaxin prn. 2. Chronic Systolic HF - chronic, not in exacerbation, continue home medications 3. Lymphoma - chronic, follows with [facility] Hem/On[facility] 4. A fib - chronic, stable, continue home medications 5. DM2 - chronic, accuchecks qid with ssi, ada diet, continue home medications DVT: Lovenox Dispo: Made inpatient today, no safe discharge plan in place Review Statement Review Statement: I have personally discussed and reviewed the patient's visit/currently labs/imaging/decision making with Dr. Gifford, my supervising attending. Greater that 50 minutes spent with patient, 50% of the time spent with this patient was devoted to counseling and coordination of care.
[2024-04-06] MEDS: NON-FORMULARY MEDICATION (Dulaglutide [Trulicity] 1.5 MG) SUBCUT SCH (14:43)
[2024-04-07 05:11] LABS: HEMATOCRIT 31.6 % (37.0-47.0); MEAN CORPUSCULAR HEMOGLOBIN 33.1 pg (27.0-31.0); MEAN CORPUSCULAR HGB CONC 31.6 (31.8-35.4); MEAN CORPUSCULAR VOLUME 104.6 fl (81.0-99.0); PLATELET COUNT 196 10^3/uL (140-440); RDW COEFFICIENT OF VARIATION 14.3 % (11.6-14.8); RED BLOOD COUNT 3.02 10^6/ul (4.20-5.40); WHITE BLOOD COUNT 37.83 K/ul (4.6-10.2)
[2024-04-07 05:23] LABS: ALANINE AMINOTRANSFERASE 18.4 U/L (0-35); ALBUMIN 3.08 g/dL (3.5-5.0); ALKALINE PHOSPHATASE 53.4 U/L (53-141); ANISOCYTOSIS NOT PRESENT (NOT PRESENT); ASPARTATE AMINO TRANSFERASE 32.3 U/L (14-36); BILIRUBIN,TOTAL 0.29 mg/dL (0.2-1.3); CALCIUM 7.91 mg/dL (8.4-10.2); CARBON DIOXIDE 26.6 mmol/L (22-30.0); CHLORIDE 102.6 mmol/L (98-107); CREATININE 0.75 mg/dL (0.60-1.30); GLUCOSE 129.7 mg/dL (74-106); POTASSIUM 4.19 mmol/L (3.5-5.1); SODIUM 133.8 mmol/L (134.5-145); TOTAL PROTEIN 5.55 g/dL (6.3-8.2)
[2024-04-07] MEDS: LOVENOX SUBCUT SCH (08:43)
--- NOTE | 2024-04-07 09:01 | PCM.PROG ---
Date/Time Seen Date Seen by Provider: 04/07/24 Time Seen by Provider: 08:30 Provider Provider: MARCO ANTONIO WHITEHEAD PA-C, [facility] Chief Complaint Chief Complaint: INTERIOR PELVIC RAMUS FX, [place] Subjective Subjective: Patient isn't having much pain at rest but admits to having a lot of pain with standing. Complains of pain in her right hip. Doesn't feel safe for discharge to home. Working with therapy. Objective Appearance: Positive No Apparent Distress and Alert and Oriented x3 Chest/Lungs: Positive Clear to Auscultation Bilaterally; Negative Rales, Rhonci or Wheezes Heart: Positive RRR GI/: Positive Soft, Nontender, Bowel Sounds Normal and No Distention Neurological: Positive Cranial Nerves Intact, Alert, Oriented and Other (+generalized weakness, pain with ROM of right hip ) Vital Signs Vital Signs: Vital Signs: Last 24 Hours 04/06/24 10:00 04/06/24 13:00 04/06/24 14:00 Temperature 97.8 F 97.7 F Temperature Source Temporal Artery Scan Temporal Artery Scan Pulse Rate 89 88 Respiratory Rate 18 17 Blood Pressure 94/47 L 98/59 L Blood Pressure Mean 62 72 Blood Pressure Location Left Radial Artery Left Radial Artery Blood Pressure Position Sitting Sitting O2 Sat by Pulse Oximetry 97 97 Oxygen Delivery Method Room Air Room Air Telemetry Type Remote Telemetry Telemetry Monitoring Continues Telemetry Heart Rate 87 EKG [place] Interval 0.18 EKG QRS Interval 0.10 Telemetry Strip Reading SR 04/06/24 18:00 04/06/24 19:00 04/06/24 19:12 Temperature 98.3 F Temperature Source Temporal Artery Scan Pulse Rate 101 H Respiratory Rate 18 Blood Pressure 123/52 L Blood Pressure Mean 75 Blood Pressure Location Left Radial Artery Blood Pressure Position Sitting O2 Sat by Pulse Oximetry 96 Oxygen Delivery Method Room Air Room Air Telemetry Type Remote Telemetry Telemetry Monitoring Continues Telemetry Heart Rate 99 EKG NV Interval 0.22 H EKG QRS Interval 0.06 Telemetry Strip Reading SR WITH 1ST DEGREE AVB 04/06/24 21:42 04/07/24 01:00 04/07/24 02:00 Temperature 96.8 F L 97.3 F L Temperature Source Oral Oral Pulse Rate 98 87 Respiratory Rate 16 16 Blood Pressure 108/45 L 119/60 Blood Pressure Mean 66 79 Blood Pressure Location Left Arm Left Arm Blood Pressure Position Supine Supine O2 Sat by Pulse Oximetry 96 96 Oxygen Delivery Method Room Air Room Air Telemetry Type Remote Telemetry Telemetry Monitoring Continues Telemetry Heart Rate 98 EKG NV Interval 0.22 H EKG QRS Interval 0.07 Telemetry Strip Reading SR WITH 1ST DEGREE AVB 04/07/24 06:00 04/07/24 07:00 Temperature 97.6 F Temperature Source Temporal Artery Scan Pulse Rate 89 Respiratory Rate 16 Blood Pressure 145/77 H Blood Pressure Mean 99 Blood Pressure Location Left Arm Blood Pressure Position Supine O2 Sat by Pulse Oximetry 96 Oxygen Delivery Method Room Air Telemetry Type Remote Telemetry Telemetry Monitoring Continues Telemetry Heart Rate 90 EKG NV Interval 0.22 H EKG QRS Interval 0.08 Telemetry Strip Reading SR with 1st degree AVB Lab Results Lab Results: Lab Results: Last 24 Hours 04/07/24 05:07 WBC 37.83 H RBC 3.02 L Hgb 10.0 L Hct 31.6 L MCV 104.6 H MCH 33.1 H MCHC 31.6 L RDW Coeff of Monty 14.3 Plt Count 196 Neutrophils % (Manual) 22.0 L Lymphocytes % (Manual) 73.0 H Monocytes % (Manual) 5.0 Anisocytosis Not present Sodium 133.8 L Potassium 4.19 Chloride 102.6 Carbon Dioxide 26.6 Anion Gap 8.79 BUN 24.0 H Creatinine 0.75 Estimated GFR (MDRD) 75.00 BUN/Creatinine Ratio 32.00 Glucose 129.7 H Calcium 7.91 L Total Bilirubin 0.29 AST 32.3 ALT 18.4 Alkaline Phosphatase 53.4 Total Protein 5.55 L Albumin 3.08 L Globulin 2.47 Albumin/Globulin Ratio 1.24 Additional Comments Additional Comments: I have independently reviewed and interpreted the labs/EKGs/imaging ordered during this hospital stay. I have reviewed outside records that are available in our EMR that pertain to medical stay including imaging/notes/labs from previous visits. Active Medications Active Medications: Medications Generic Name Dose Route Start Last Admin Trade Name Freq PRN Reason Stop Dose Admin Acetaminophen 500 mg 04/05/24 05:03 04/05/24 15:02 Acetaminophen 500 Mg Tablet PO 500 mg Q4HR PRN Administration Pain Aspirin 81 mg 04/05/24 09:00 04/07/24 07:42 Aspirin 81 Mg Tab.Chew PO 81 mg DAILYWM2 MURPHY Administration Bisacodyl 10 mg 09/29/24 08:00 04/05/24 09:20 Bisacodyl 5 Mg Tablet. PO 10 mg DAILY PRN Administration Constipation Budesonide/Formoterol Fumarate 2 puff 04/05/24 09:00 04/07/24 08:39 Budesonide/Formoterol Fumarate 160/4.5 Mcg Inhaler IH 2 puff BID MURPHY Administration Calcium/Vitamin D 1 each 04/05/24 09:00 04/07/24 08:41 Calcium Carbonate/Vitamin D3 500 Mg/5 Mcg(200iu) 1 Each Tablet PO 1 each BID MURPHY Administration Carvedilol 25 mg 04/05/24 09:00 04/07/24 07:43 Carvedilol 12.5 Mg Tablet PO 25 mg BIDWM2 MURPHY Administration Clopidogrel Bisulfate 75 mg 04/05/24 09:00 04/07/24 08:41 Clopidogrel Bisulfate 75 Mg Tablet PO 75 mg DAILY MURPHY Administration Diphenhydramine HCl 25 mg 04/05/24 08:27 Diphenhydramine Hcl 25 Mg Capsule PO BEDTIME PRN Insomnia Docusate Sodium 100 mg 04/05/24 09:00 04/07/24 08:37 Docusate Sodium 100 Mg Capsule PO 100 mg BID MURPHY Administration Empagliflozin 10 mg 04/05/24 09:00 04/07/24 08:36 Empagliflozin 10 Mg Tablet PO 10 mg DAILY MURPHY Administration Enoxaparin Sodium 40 mg 04/07/24 09:00 04/07/24 08:43 Enoxaparin Sodium 40 Mg/0.4 Ml Syr SUBCUT 40 mg DAILY MURPHY Administration Ferrous Sulfate 324 mg 04/05/24 09:00 04/07/24 08:37 Ferrous Sulfate 324 Mg Tablet. PO 324 mg BID MURPHY Administration Fluticasone Propionate 2 spray 04/05/24 09:00 04/07/24 08:39 Fluticasone Propionate 16 Gm Nasal [place] THERESA 2 spray DAILY MURPHY Administration Furosemide 20 mg 04/05/24 09:00 04/07/24 06:05 Furosemide 20 Mg Tablet PO 20 mg QDAC2 MURPHY Administration Gabapentin 300 mg 04/05/24 09:00 04/07/24 08:33 Gabapentin 300 Mg Capsule PO 300 mg TID MURPHY Administration Gabapentin 100 mg 04/05/24 09:00 04/07/24 08:34 Gabapentin 100 Mg Capsule PO 100 mg TID MURPHY Administration Insulin Glargine 24 unit 04/05/24 21:00 04/06/24 20:13 Insulin Glargine,Hum.Rec.Anlog 100 Units/Ml SUBCUT 24 unit BEDTIME MURPHY Administration Insulin Human Lispro 5 unit 04/05/24 12:00 04/07/24 07:44 Insulin Lispro 100 Unit/Ml (10 Ml Vial) SUBCUT 5 unit TIDWM2 MURPHY Administration Levothyroxine Sodium 100 mcg 04/05/24 09:00 04/07/24 06:05 Levothyroxine Sodium 100 Mcg Tablet PO 100 mcg QDAC2 MURPHY Administration Loratadine 10 mg 04/05/24 09:00 04/07/24 08:36 Loratadine 10 Mg Tablet PO 10 mg DAILY MURPHY Administration Losartan Potassium 25 mg 04/05/24 09:00 04/07/24 08:38 Losartan Potassium 25 Mg Tablet PO 25 mg DAILY MURPHY Administration Lovastatin 40 mg 04/05/24 17:00 04/06/24 17:07 Lovastatin 20 Mg Tablet PO 40 mg QPM MURPHY Administration Metformin HCl 500 mg 04/05/24 09:00 04/06/24 08:07 Metformin Hcl 500 Mg Tablet PO 500 mg DAILYWM2 MURPHY Administration Methocarbamol 500 mg 04/06/24 08:27 Methocarbamol 500 Mg Tablet PO Q6HR PRN pain Montelukast Sodium 10 mg 04/05/24 09:00 04/07/24 08:35 Montelukast Sodium 10 Mg Tablet PO 10 mg DAILY MURPHY Administration Non-Formulary Medication 1 tab 04/05/24 09:00 04/07/24 08:40 Conj Estrog-Medroxyprogest Michael [Prempro] PO 1 tab DAILY MURPHY Administration Non-Formulary Medication 10 mg 04/05/24 21:00 04/06/24 21:21 Melatonin PO 10 mg BEDTIME MURPHY Administration Non-Formulary Medication 1.5 mg 04/06/24 14:45 04/06/24 14:43 Dulaglutide [Trulicity] SUBCUT 1.5 mg WEEKLY MURPHY Administration Omeprazole 20 mg 04/05/24 09:00 04/07/24 06:06 Omeprazole 20 Mg Capsule.Dr PO 20 mg BIDAC2 MURPHY Administration Oxycodone/Acetaminophen 1 tab 04/06/24 08:30 04/07/24 08:32 Oxycodone/Acetaminophen 5/325 Mg Tablet PO 1 tab Q8H MURPHY Administration Sacubitril/Valsartan 1 each 04/05/24 09:00 04/07/24 08:34 Sacubitril/Valsartan 1 Each Tablet PO 1 each BID MURPHY Administration Spironolactone 25 mg 04/05/24 09:00 04/07/24 08:42 Spironolactone 25 Mg Tablet PO 25 mg DAILY MURPHY Administration Terazosin HCl 5 mg 04/05/24 21:00 04/06/24 20:12 Terazosin Hcl 5 Mg Capsule PO 5 mg BEDTIME MURPHY Administration Plan Plan: 1. Right inferior pubic ramus fracture with weakness and debility - PT/OT consult, will need rehab - patient would like to do swingbed, oxycodone ordered and robaxin prn. 2. Chronic Systolic HF - chronic, not in exacerbation, continue home medications 3. Lymphoma - chronic, follows with [facility] Hem/Onc 4. A fib - chronic, stable, continue home medications 5. DM2 - chronic, accuchecks qid with ssi, ada diet, continue home medications DVT: Lovenox Dispo: Plan to do swingbed Review Statement Review Statement: I have personally discussed and reviewed the patient's visit/currently labs/imaging/decision making with Dr. Gifford, my supervising attending. Greater that 50 minutes spent with patient, 50% of the time spent with this patient was devoted to counseling and coordination of care.
[2024-04-08 05:18] LABS: HEMATOCRIT 32.4 % (37.0-47.0); HEMOGLOBIN 10.1 g/dl (12.0-16.0); MEAN CORPUSCULAR HEMOGLOBIN 32.7 pg (27.0-31.0); MEAN CORPUSCULAR HGB CONC 31.2 (31.8-35.4); MEAN CORPUSCULAR VOLUME 104.9 fl (81.0-99.0); PLATELET COUNT 192 10^3/uL (140-440); RDW COEFFICIENT OF VARIATION 14.2 % (11.6-14.8); RED BLOOD COUNT 3.09 10^6/ul (4.20-5.40); WHITE BLOOD COUNT 35.59 K/ul (4.6-10.2)
[2024-04-08 05:32] LABS: ALANINE AMINOTRANSFERASE 18.5 U/L (0-35); ALBUMIN 3.18 g/dL (3.5-5.0); ALKALINE PHOSPHATASE 51.5 U/L (53-141); ASPARTATE AMINO TRANSFERASE 35.6 U/L (14-36); BILIRUBIN,TOTAL 0.32 mg/dL (0.2-1.3); BLOOD UREA NITROGEN 23.3 mg/dL (7-17); CALCIUM 8.42 mg/dL (8.4-10.2); CARBON DIOXIDE 25.1 mmol/L (22-30.0); CHLORIDE 103.6 mmol/L (98-107); CREATININE 0.77 mg/dL (0.60-1.30); GLUCOSE 149.3 mg/dL (74-106); POTASSIUM 4.17 mmol/L (3.5-5.1); SODIUM 135.1 mmol/L (134.5-145); TOTAL PROTEIN 5.68 g/dL (6.3-8.2)
[2024-04-08 05:39] LABS: ANISOCYTOSIS NOT PRESENT (NOT PRESENT)
--- NOTE | 2024-04-08 09:29 | PCM.PROG ---
Date/Time Seen Date Seen by Provider: 04/08/24 Time Seen by Provider: 08:30 Provider Provider: MARCO ANTONIO WHITEHEAD PA-C, [facility] Chief Complaint Chief Complaint: INTERIOR PELVIC RAMUS FX, [place] Subjective Subjective: Patient is still having a difficult time ambulating and doing basic ADLs. Otherwise has no complaints. Objective Appearance: Positive No Apparent Distress and Alert and Oriented x3 Chest/Lungs: Positive Clear to Auscultation Bilaterally; Negative Rales, Rhonci or Wheezes Heart: Positive RRR GI/: Positive Soft, Nontender, Bowel Sounds Normal and No Distention Neurological: Positive Cranial Nerves Intact, Alert, Oriented and Other (+generalized weakness, pain with ROM of right hip ) Vital Signs Vital Signs: Vital Signs: Last 24 Hours 04/07/24 10:00 04/07/24 13:00 04/07/24 14:00 Temperature 98 F 98.3 F Temperature Source Temporal Artery Scan Temporal Artery Scan Pulse Rate 101 H 91 Respiratory Rate 14 14 Blood Pressure 106/62 110/53 L Blood Pressure Mean 76 72 Blood Pressure Location Left Arm Left Arm Blood Pressure Position Sitting Sitting O2 Sat by Pulse Oximetry 100 97 Oxygen Delivery Method Room Air Room Air Telemetry Type Remote Telemetry Telemetry Monitoring Continues Telemetry Heart Rate 93 EKG [place] Interval 0.22 H EKG QRS Interval 0.07 Telemetry Strip Reading SR with 1st degree AVB 04/07/24 17:59 04/07/24 18:52 04/07/24 20:20 Temperature 97.7 F 97.4 F L Temperature Source Temporal Artery Scan Temporal Artery Scan Pulse Rate 97 89 Respiratory Rate 18 18 Blood Pressure 99/65 128/85 Blood Pressure Mean 76 99 Blood Pressure Location Left Arm Left Arm Blood Pressure Position Sitting Sitting O2 Sat by Pulse Oximetry 96 96 Oxygen Delivery Method Room Air Room Air Telemetry Type Remote Telemetry Telemetry Monitoring Continues Telemetry Heart Rate 106 H EKG W[place] Interval 0.21 H EKG QRS Interval 0.04 L Telemetry Strip Reading SR-ST WITH 1ST DEGREE AVB 04/08/24 01:00 04/08/24 05:27 04/08/24 07:00 Temperature 97.8 F Temperature Source Temporal Artery Scan Pulse Rate 91 Respiratory Rate 18 Blood Pressure 166/81 H Blood Pressure Mean 109 Blood Pressure Location Left Arm Blood Pressure Position Supine O2 Sat by Pulse Oximetry 96 Oxygen Delivery Method Room Air Telemetry Type Remote Telemetry Remote Telemetry Telemetry Monitoring Continues Continues Telemetry Heart Rate 93 94 EKG W[place] Interval 0.22 H 0.20 EKG QRS Interval 0.06 0.09 Telemetry Strip Reading SR WITH 1ST DEGREE AVB SR 04/08/24 08:00 Temperature Temperature Source Pulse Rate Respiratory Rate 18 Blood Pressure Blood Pressure Mean Blood Pressure Location Blood Pressure Position O2 Sat by Pulse Oximetry Oxygen Delivery Method Room Air Telemetry Type Telemetry Monitoring Telemetry Heart Rate EKG WV Interval EKG QRS Interval Telemetry Strip Reading Lab Results Lab Results: Lab Results: Last 24 Hours 04/08/24 05:13 WBC 35.59 H RBC 3.09 L Hgb 10.1 L Hct 32.4 L MCV 104.9 H MCH 32.7 H MCHC 31.2 L RDW Coeff of Monty 14.2 Plt Count 192 Neutrophils % (Manual) 19.0 L Lymphocytes % (Manual) 75.0 H Monocytes % (Manual) 6.0 Anisocytosis Not present Sodium 135.1 Potassium 4.17 Chloride 103.6 Carbon Dioxide 25.1 Anion Gap 10.57 BUN 23.3 H Creatinine 0.77 Estimated GFR (MDRD) 73.00 BUN/Creatinine Ratio 30.25 Glucose 149.3 H Calcium 8.42 Total Bilirubin 0.32 AST 35.6 ALT 18.5 Alkaline Phosphatase 51.5 L Total Protein 5.68 L Albumin 3.18 L Globulin 2.50 Albumin/Globulin Ratio 1.27 Additional Comments Additional Comments: I have independently reviewed and interpreted the labs/EKGs/imaging ordered during this hospital stay. I have reviewed outside records that are available in our EMR that pertain to medical stay including imaging/notes/labs from previous visits. Active Medications Active Medications: Medications Generic Name Dose Route Start Last Admin Trade Name Freq PRN Reason Stop Dose Admin Acetaminophen 500 mg 04/05/24 05:03 04/05/24 15:02 Acetaminophen 500 Mg Tablet PO 500 mg Q4HR PRN Administration Pain Aspirin 81 mg 04/05/24 09:00 04/08/24 08:43 Aspirin 81 Mg Tab.Chew PO 81 mg DAILYWM2 MURPHY Administration Bisacodyl 10 mg 04/05/24 08:00 04/05/24 09:20 Bisacodyl 5 Mg Tablet.Dr PO 10 mg DAILY PRN Administration Constipation Budesonide/Formoterol Fumarate 2 puff 04/05/24 09:00 04/08/24 08:42 Budesonide/Formoterol Fumarate 160/4.5 Mcg Inhaler IH 2 puff BID MURPHY Administration Calcium/Vitamin D 1 each 04/05/24 09:00 04/08/24 08:43 Calcium Carbonate/Vitamin D3 500 Mg/5 Mcg(200iu) 1 Each Tablet PO 1 each BID MURPHY Administration Carvedilol 25 mg 04/05/24 09:00 04/08/24 08:43 Carvedilol 12.5 Mg Tablet PO 25 mg BIDWM2 MURPHY Administration Clopidogrel Bisulfate 75 mg 04/05/24 09:00 04/08/24 08:43 Clopidogrel Bisulfate 75 Mg Tablet PO 75 mg DAILY MURPHY Administration Diphenhydramine HCl 25 mg 04/05/24 08:27 Diphenhydramine Hcl 25 Mg Capsule PO BEDTIME PRN Insomnia Docusate Sodium 100 mg 04/05/24 09:00 04/08/24 08:44 Docusate Sodium 100 Mg Capsule PO 100 mg BID MURPHY Administration Empagliflozin 10 mg 04/05/24 09:00 04/08/24 08:44 Empagliflozin 10 Mg Tablet PO 10 mg DAILY MURPHY Administration Enoxaparin Sodium 40 mg 04/07/24 09:00 04/08/24 08:41 Enoxaparin Sodium 40 Mg/0.4 Ml Syr SUBCUT 40 mg DAILY MURPHY Administration Ferrous Sulfate 324 mg 04/05/24 09:00 04/08/24 08:44 Ferrous Sulfate 324 Mg Tablet. PO 324 mg BID MURPHY Administration Fluticasone Propionate 2 spray 04/05/24 09:00 04/08/24 08:41 Fluticasone Propionate 16 Gm Nasal [place] THERESA 2 spray DAILY MURPHY Administration Furosemide 20 mg 04/05/24 09:00 04/08/24 05:01 Furosemide 20 Mg Tablet PO 20 mg QDAC2 MURPHY Administration Gabapentin 300 mg 04/05/24 09:00 04/08/24 08:43 Gabapentin 300 Mg Capsule PO 300 mg TID MURPHY Administration Gabapentin 100 mg 04/05/24 09:00 04/08/24 08:44 Gabapentin 100 Mg Capsule PO 100 mg TID MURPHY Administration Insulin Glargine 24 unit 04/05/24 21:00 04/07/24 20:11 Insulin Glargine,Hum.Rec.Anlog 100 Units/Ml SUBCUT 24 unit BEDTIME MURPHY Administration Insulin Human Lispro 5 unit 04/05/24 12:00 04/08/24 08:51 Insulin Lispro 100 Unit/Ml (10 Ml Vial) SUBCUT Not Given TIDWM2 MURPHY Levothyroxine Sodium 100 mcg 04/05/24 09:00 04/08/24 05:01 Levothyroxine Sodium 100 Mcg Tablet PO 100 mcg QDAC2 MURPHY Administration Loratadine 10 mg 04/05/24 09:00 04/08/24 08:44 Loratadine 10 Mg Tablet PO 10 mg DAILY MURPHY Administration Losartan Potassium 25 mg 04/05/24 09:00 04/08/24 08:43 Losartan Potassium 25 Mg Tablet PO 25 mg DAILY MURPHY Administration Lovastatin 40 mg 04/05/24 17:00 04/07/24 16:42 Lovastatin 20 Mg Tablet PO 40 mg QPM MURPHY Administration Metformin HCl 500 mg 04/05/24 09:00 04/06/24 08:07 Metformin Hcl 500 Mg Tablet PO 500 mg DAILYWM2 MURPHY Administration Methocarbamol 500 mg 04/06/24 08:27 Methocarbamol 500 Mg Tablet PO Q6HR PRN pain Montelukast Sodium 10 mg 04/05/24 09:00 04/08/24 08:43 Montelukast Sodium 10 Mg Tablet PO 10 mg DAILY MURPHY Administration Non-Formulary Medication 1 tab 04/05/24 09:00 04/08/24 08:42 Conj Estrog-Medroxyprogest Michael [Prempro] PO 1 tab DAILY MURPHY Administration Non-Formulary Medication 10 mg 04/05/24 21:00 04/07/24 20:09 Melatonin PO 10 mg BEDTIME MURPHY Administration Non-Formulary Medication 1.5 mg 04/06/24 14:45 04/06/24 14:43 Dulaglutide [Trulicity] SUBCUT 1.5 mg WEEKLY MURPHY Administration Omeprazole 20 mg 04/05/24 09:00 04/08/24 05:01 Omeprazole 20 Mg Capsule.Dr PO 20 mg BIDAC2 MURPHY Administration Oxycodone/Acetaminophen 1 tab 04/06/24 08:30 04/08/24 08:44 Oxycodone/Acetaminophen 5/325 Mg Tablet PO 1 tab Q8H MURPHY Administration Sacubitril/Valsartan 1 each 04/05/24 09:00 04/08/24 08:43 Sacubitril/Valsartan 1 Each Tablet PO 1 each BID MURPHY Administration Spironolactone 25 mg 04/05/24 09:00 04/08/24 08:43 Spironolactone 25 Mg Tablet PO 25 mg DAILY MURPHY Administration Terazosin HCl 5 mg 04/05/24 21:00 04/07/24 20:10 Terazosin Hcl 5 Mg Capsule PO 5 mg BEDTIME MURPHY Administration Plan Plan: 1. Right inferior pubic ramus fracture with weakness and debility - PT/OT consult, will need rehab - patient would like to do swingbed, oxycodone ordered and robaxin prn. 2. Chronic Systolic HF - chronic, not in exacerbation, continue home medications 3. Lymphoma - chronic, follows with [facility] Hem/Onc 4. A fib - chronic, stable, continue home medications 5. DM2 - chronic, accuchecks qid with ssi, ada diet, continue home medications DVT: Lovenox Dispo: Plan to do swingbed Review Statement Review Statement: I have personally discussed and reviewed the patient's visit/currently labs/imaging/decision making with Dr. Gifford, my supervising attending. Greater that 50 minutes spent with patient, 50% of the time spent with this patient was devoted to counseling and coordination of care.
[2024-04-08] MEDS: FLEXERIL PO PRN (11:03)
[2024-04-08] MEDS: LIDODERM 5 % PATCH TP SCH (11:04)
[2024-04-09 05:19] LABS: HEMATOCRIT 31.6 % (37.0-47.0); HEMOGLOBIN 9.8 g/dl (12.0-16.0); MEAN CORPUSCULAR HEMOGLOBIN 32.3 pg (27.0-31.0); MEAN CORPUSCULAR VOLUME 104.3 fl (81.0-99.0); PLATELET COUNT 202 10^3/uL (140-440); RDW COEFFICIENT OF VARIATION 14.1 % (11.6-14.8); RED BLOOD COUNT 3.03 10^6/ul (4.20-5.40)
[2024-04-09 05:29] LABS: WHITE BLOOD COUNT 30.38 K/ul (4.6-10.2)
[2024-04-09 05:34] LABS: ALANINE AMINOTRANSFERASE 18.5 U/L (0-35); ALBUMIN 3.2 g/dL (3.5-5.0); ASPARTATE AMINO TRANSFERASE 34.9 U/L (14-36); BILIRUBIN,TOTAL 0.33 mg/dL (0.2-1.3); BLOOD UREA NITROGEN 23.6 mg/dL (7-17); CALCIUM 8.33 mg/dL (8.4-10.2); CARBON DIOXIDE 27.2 mmol/L (22-30.0); CHLORIDE 101.2 mmol/L (98-107); CREATININE 0.75 mg/dL (0.60-1.30); GLUCOSE 164.3 mg/dL (74-106); POTASSIUM 4.21 mmol/L (3.5-5.1); TOTAL PROTEIN 5.78 g/dL (6.3-8.2)
--- NOTE | 2024-04-09 10:21 | DCSUM ---
Admission Date Admission Date: 04/05/24 Discharge Date Discharge Date: 04/09/24 Admission Diagnosis Admission Diagnosis: 1. Right inferior pubic ramus fracture with weakness and debility Discharge Diagnosis Discharge Diagnosis: 1. Right inferior pubic ramus fracture with weakness and debility 2. Chronic Systolic HF 3. Lymphoma 4. A fib 5. DM2 Hospital Provider Hospital Provider: MARCO ANTONIO WHITEHEAD PA-C, [facility] Primary Care Physician Primary Care Physician: ROSA SANTIAGO Summary of History and Physical Summary of History and Physical: 78 yo female presented to the ER after falling in her kitchen at 5pm. Came in for stitches/bleeding control due to skin tears on the R arm. Also had complaints of pain to the R hip. Found to have R pubic ramus fracture. Patient reports she has fallen twice in the last 2 days and both times she lost her balance. Denies dizziness or syncope. States she has chronic problems with her balance. Lives at home with her . Has wheelchair and walker available. Admitted to med/surg observation. Hospital Course Subjective: Patient has made slow progress with PT/OT. She has been taking percocet and robaxin. Robaxin was changed to flexeril and patient had better response from that. Lidocaine patch as well. Pt's baseline is being able to ambulate with a walker with the help of her at home. At this time patient is still requiring assist x2 and will require further therapy. Plan to admit to swingbed today. Appearance: Pleasant, No Apparent Distress and Alert HEENT: MMM and Supple CVS: No Murmur Abdomen: Soft, Non-Tender and No Distention Respiratory: No Accessory Muscle Use Extremities: No Edema Additional Findings: +generalized weakness Vital Signs: Most Recent Vital Signs Temperature 96.7 F L 04/09/24 05:07 Temperature Source Temporal Artery Scan 04/09/24 05:07 Temperature Source Oral 04/05/24 05:20 Pulse Rate 96 04/09/24 05:07 Respiratory Rate 16 04/09/24 05:07 Blood Pressure 119/56 L 04/09/24 05:07 Blood Pressure Mean 77 04/09/24 05:07 Blood Pressure Left Arm 145/60 04/05/24 05:34 Blood Pressure Location Left Arm 04/09/24 05:07 Blood Pressure Position Supine 04/09/24 05:07 O2 Sat by Pulse Oximetry 96 04/09/24 05:07 Oxygen Delivery Method Room Air 04/09/24 08:00 Height 5 ft 4 in 04/05/24 05:34 Weight 79.7 kg 04/05/24 05:34 Telemetry Type Remote Telemetry 04/09/24 07:00 Telemetry Monitoring Continues 04/09/24 07:00 Telemetry Heart Rate 96 04/09/24 07:00 EKG AK Interval 0.2 04/09/24 07:00 EKG QRS Interval 0.08 04/09/24 07:00 Telemetry Strip Reading SR with 1 AVB 04/09/24 07:00 Imaging: EXAM: CT OF THE PELVIS WITHOUT CONTRAST History: Pelvic trauma and right hip pain. Technique: Multiplanar CT images through the pelvis were obtained without the administration of IV contrast FINDINGS: Atherosclerotic vascular calcifications. No bladder wall thickening. No perirectal inflammation. Uterus is not enlarged. No pelvic lymphadenopathy and no pelvic fluid. Osteopenia. Grossly intact hardware within the proximal left femur. Postsurgical changes of the lumbar spine. Mildly displaced fracture of the right inferior pubic ramus. No other fractures are seen. No dislocation. Mild narrowing of the right hip joint. Impression: Fracture of the right inferior pubic ramus EXAM: SINGLE VIEW OF THE CHEST. History: Dyspnea. FINDINGS: Heart size is upper limits of normal. No consolidation. No pleural fluid and no pneumothorax. No acute osseous abnormalities. Postsurgical changes of the cervical spine. Some type of heart device is identified Impression: No acute cardiopulmonary process Lab Results Last 24 Hours: 04/09/24 05:05 WBC 30.38 H D RBC 3.03 L Hgb 9.8 L Hct 31.6 L MCV 104.3 H MCH 32.3 H MCHC 31.0 L RDW Coeff of Monty 14.1 Plt Count 202 Neutrophils % (Manual) 24.0 L Lymphocytes % (Manual) 74.0 H Monocytes % (Manual) 2.0 Anisocytosis Not Reportable Sodium 134.0 L Potassium 4.21 Chloride 101.2 Carbon Dioxide 27.2 Anion Gap 9.81 BUN 23.6 H Creatinine 0.75 Estimated GFR (MDRD) 75.00 BUN/Creatinine Ratio 31.46 Glucose 164.3 H Calcium 8.33 L Total Bilirubin 0.33 AST 34.9 ALT 18.5 Alkaline Phosphatase 56.0 Total Protein 5.78 L Albumin 3.20 L Globulin 2.58 Albumin/Globulin Ratio 1.24 Discharge Instructions Discharge Planning: Discharge Planning > [address] Mauricio Gifford. Discharge Medications: Medications at Discharge (Home Meds & RX) Discharge Plan Discharge Discharge Orders: Discharge Patient (ONCE); Ordered 04/09/24 Ordered By: MARCO ANTONIO WHITEHEAD Activity Restrictions/Additional Instructions: DISCHARGE TO SWINGBED Patient Disposition: DISCH W/I HOSP TO SWING BD Prescriptions: No Action montelukast [Singulair] 10 mg tablet 10 mg PO DAILY fluticasone propionate [Flonase Allergy Relief] 50 mcg/actuation spray,herrera spension 2 spray intranasal DAILY Rx Instructions: administer into each nostril levothyroxine [Synthroid] 100 mcg tablet 100 mcg PO DAILY losartan [Cozaar] 25 mg tablet 25 mg PO DAILY Prempro 0.3-1.5 mg tablet 1 tab PO DAILY Trulicity 1.5 mg/0.5 mL pen injector 1.5 mg subcut WEEKLY omeprazole magnesium [Prilosec OTC] 20 mg tablet,delayed release (DR/EC) 20 mg PO BID spironolactone [Aldactone] 25 mg tablet 25 mg PO DAILY Serevent Diskus 50 mcg/dose blister with device 1 inh inhalation BID clopidogrel [Plavix] 75 mg tablet 75 mg PO DAILY fluticasone propionate [Flovent Diskus] 50 mcg/actuation blister with device 2 inh inhalation BID Jardiance 10 mg tablet 10 mg PO DAILY lovastatin 40 mg tablet 40 mg PO DAILY aspirin [Aspirin Childrens] 81 mg tablet,chewable 81 mg PO DAILY insulin glargine [Basaglar KwikPen U-100 Insulin] 100 unit/mL (3 mL) insulin pen 24 unit subcut BEDTIME furosemide [Lasix] 40 mg tablet 20 mg PO DAILY gabapentin 400 mg capsule 400 mg PO TID Entresto 24-26 mg tablet 1 tab PO BID insulin lispro [Humalog KwikPen Insulin] 100 unit/mL insulin pen 5 unit subcut .TIDWM carvedilol [Coreg] 25 mg tablet 25 mg PO BID Rx Instructions: must administer with a meal/food metformin 500 mg tablet 500 mg PO DAILY ferrous sulfate [Feosol] 325 mg (65 mg iron) tablet 325 mg PO BID docusate sodium [Col-Rite] 100 mg capsule 100 mg PO BID oxycodone-acetaminophen [Endocet] 5-325 mg tablet 1 tab PO Q8H cetirizine [24Hour Allergy] 10 mg tablet 10 mg PO DAILY terazosin 5 mg tablet 5 mg PO BEDTIME calcium carbonate-vitamin D3 [Calcium 600 + D(3)] 600 mg-5 mcg (200 unit) tablet 1 tab PO BID diphenhydramine HCl [Banophen] 25 mg tablet 25 mg PO BEDTIME PRN (Reason: sleep) bisacodyl [Dulcolax (bisacodyl)] 5 mg tablet,delayed release (DR/EC) 10 mg PO DAILY PRN (Reason: constipation) melatonin 10 mg capsule 10 mg PO BEDTIME Did you review [place] for ALL controlled substances?: Not Applicable Discussed opioids are addictive and Narcan is available by prescription or from pharmacy.: No Condition: Stable
[2024-04-09 10:24] VITALS: BP 101/59; PULSE 98; RESP 20; TEMP 97.8
[2024-04-09] MEDS ORDERED: PERCOCET 5-325 PO SCH ×2 (14:00)
== END 2024-04-09 11:11 | disposition swing bed (61) | DRG 536 ==
LOC: ED 02:05 → MEDSURG B 02:05
PROVIDERS: ADMIT Hospitalist; ATTEND Physician Assistant